=== PATIENT | male | born 1940 | race Two or more races ===

== ENCOUNTER 2024-09-12 16:19 | Emergency (ER) | payer MEDICARE, OTHER ==
[~2024-09-12] VITALS: Ht 167.6 cm; Wt 70.3 kg
[2024-09-12 17:04] LABS: BASOPHILS % (AUTO) 0.2 % (0.0-2.0); EOSINOPHILS # (AUTO) 0.2 K/uL (0.0-0.7); EOSINOPHILS % (AUTO) 2.2 % (0.0-6.0); HEMATOCRIT 33 % (39-51); HEMOGLOBIN 10.9 g/dL (13.5-17.5); LYMPHOCYTES # (AUTO) 1.3 K/uL (0.8-4.8); LYMPHOCYTES % (AUTO) 11.7 % (20.0-44.0); MEAN CORPUSCULAR HEMOGLOBIN 32 PG (26.0-33.0); MEAN CORPUSCULAR HGB CONC 33 g/dl (31.0-36.0); MEAN CORPUSCULAR VOLUME 98 fL (80-96); MONOCYTES # (AUTO) 0.9 K/uL (0.1-1.30); MONOCYTES % (AUTO) 8.1 % (2.0-12.0); NEUTROPHILS # (AUTO) 8.4 K/uL (1.8-8.9); NEUTROPHILS % (AUTO) 77.8 % (43.0-81.0); PLATELET COUNT (AUTO) 206 K/uL (150-450); RED BLOOD CELL COUNT(AUTO) 3.38 MIL/uL (4.5-6.0); RED CELL DISTRIBUTION WIDTH 15.2 % (11.5-15.0); WHITE BLOOD COUNT (AUTO) 10.7 K/uL (4.3-11.0)
[2024-09-12 17:10] LABS: CALCIUM, SERUM 8.6 mg/dL (8.5-10.1); CARBON DIOXIDE 25 mmol/L (21-32); CHLORIDE 103 mmol/L (98-107); CREATININE 4.4 mg/dL (0.6-1.3); GLUCOSE 396 mg/dL (74-106); POTASSIUM 3.9 mmol/L (3.5-5.1); SODIUM SERUM 138 mmol/L (136-145)
[2024-09-12 17:15] LABS: UREA NITROGEN, BLOOD 116 mg/dL (7-18)
[2024-09-12 19:57] VITALS: BP 90/54; TEMP 98; O2SAT 99
== END 2024-09-12 20:00 | disposition home or self-care (01) ==
LOC: ER 16:45
DX: I95.9 Hypotension, unspecified (principal); I13.2 Hypertensive heart and chronic kidney disease with heart failure and with stage 5 chronic kidney disease, or end stage renal disease; I50.9 Heart failure, unspecified; N18.6 End stage renal disease; G30.9 Alzheimer's disease, unspecified; R94.4 Abnormal results of kidney function studies; E03.9 Hypothyroidism, unspecified; D64.9 Anemia, unspecified; E11.22 Type 2 diabetes mellitus with diabetic chronic kidney disease; E78.5 Hyperlipidemia, unspecified; F02.80 Dementia in other diseases classified elsewhere, unspecified severity, without behavioral disturbance, psychotic disturbance, mood disturbance, and anxiety; K21.9 Gastro-esophageal reflux disease without esophagitis; N40.0 Benign prostatic hyperplasia without lower urinary tract symptoms; Z88.6 Allergy status to analgesic agent; Z99.2 Dependence on renal dialysis
CPT/HCPCS: 36415; 80048-TC; 85025-TC

== ENCOUNTER 2024-09-30 14:13 | Inpatient (IN) | payer MEDICAID, MEDICARE ==
[~2024-09-30] VITALS: Ht 167.6 cm; Wt 78.9 kg
[2024-09-30] VITALS (10 sets, daily range): BP systolic 74–99; BP diastolic 36–83; TEMP 97.9; O2SAT 96–98
[2024-09-30] MEDS: PROPOFOL 200 MG/20 ML VIAL IV ONE (16:03)
[2024-09-30 16:34] LABS: BASOPHILS # (AUTO) 0.1 K/uL (0.0-0.2); BASOPHILS % (AUTO) 0.4 % (0.0-2.0); EOSINOPHILS % (AUTO) 0.1 % (0.0-6.0); HEMATOCRIT 42 % (39-51); HEMOGLOBIN 12.5 g/dL (13.5-17.5); LYMPHOCYTES # (AUTO) 3.2 K/uL (0.8-4.8); MEAN CORPUSCULAR HEMOGLOBIN 32 PG (26.0-33.0); MEAN CORPUSCULAR HGB CONC 30 g/dl (31.0-36.0); MEAN CORPUSCULAR VOLUME 109 fL (80-96); MONOCYTES # (AUTO) 1.1 K/uL (0.1-1.30); MONOCYTES % (AUTO) 5.5 % (2.0-12.0); NEUTROPHILS # (AUTO) 15.5 K/uL (1.8-8.9); PLATELET COUNT (AUTO) 269 K/uL (150-450); RED BLOOD CELL COUNT(AUTO) 3.91 MIL/uL (4.5-6.0); RED CELL DISTRIBUTION WIDTH 15.8 % (11.5-15.0); WHITE BLOOD COUNT (AUTO) 19.9 K/uL (4.3-11.0)
[2024-09-30] MEDS: IV NS 0.9% 1,000 ML BAG IV ONE ×2 (16:40→17:50)
[2024-09-30] MEDS ORDERED: PIPERACI/TAZO 3.375GM/D5W 50ML PB IV ONE (16:43)
[2024-09-30] MEDS ORDERED: PROPOFOL 100 ML ONE (16:43)
[2024-09-30] MEDS: PROPOFOL 100 ML IV ONE (16:50)
[2024-09-30] MEDS: PIPERACILLIN /TAZOBACTAM 3.375 G in IV D5W 50 ML IV ONE (16:51)
[2024-09-30 16:55] LABS: ALANINE AMINOTRANSFERASE 44 U/L (12-78); ALBUMIN 2.4 g/dL (3.4-5.0); ALKALINE PHOSPHATASE 227 U/L (46-116); ASPARTATE AMINOTRANSFERASE 73 U/L (15-37); BILIRUBIN,DIRECT 0.2 mg/dL (0.0-0.2); BILIRUBIN,TOTAL 0.6 mg/dL (0.2-1.0); CALCIUM, SERUM 9.3 mg/dL (8.5-10.1); CARBON DIOXIDE 13 mmol/L (21-32); CHLORIDE 103 mmol/L (98-107); POTASSIUM 4.6 mmol/L (3.5-5.1); SODIUM SERUM 143 mmol/L (136-145); TOTAL PROTEIN, SERUM 7.6 g/dL (6.4-8.2); UREA NITROGEN, BLOOD 44 mg/dL (7-18)
[2024-09-30 16:57] LABS: ABG OXYGEN SATURATION 99.3 % (94.0-98.0); ABG PCO2 22.7 mmHg (35.0-48.0); ABG PH 7.042 (7.350-7.450); ABG PO2 390.5 mmHg (83.0-108.0); ABG TOTAL HEMOGLOBIN 11.9 G/dL (13.5-17.5); COHb 0.3 % (0.5-1.5); MetHb 0.3 % (0.0-1.5); O2Hb 98.7 % (94.0-97.0); SITE, ABG RIGHT RADIAL; VT, ABG 500 mL
[2024-09-30 16:58] LABS: GLUCOSE 412 mg/dL (74-106)
[2024-09-30 16:59] LABS: INR 1.13 (0.91-1.10); PARTIAL THROMBOPLASTIN TIME 32.7 SEC (24.3-34.3); PROTHROMBIN TIME 11.5 SECS (9.2-11.1)
[2024-09-30 17:18] LABS: ANISOCYTOSIS 1+; BASOPHILS % (MANUAL) 0 % (0.0-2.0); EOSINOPHILS % (MANUAL) 0 % (0-4); LYMPHOCYTES % (MANUAL) 20 % (16-48); MONOCYTES % (MANUAL) 5 % (0-11.0); NEUTROPHILS % (MANUAL) 75 (42-76); PLATELET ESTIMATE ADEQUATE
[2024-09-30] MEDS ORDERED: INSULIN REGULAR, HUMAN 100 UNIT/ML 10 ML VIAL ONE (17:36)
[2024-09-30] MEDS: INSULIN REGULAR, HUMAN 100 UNIT/ML 10 ML VIAL IV ONE (17:48)
[2024-09-30] MEDS ORDERED: DEXTROSE 50%-WATER 50 ML DISP.SYRIN IV PRN (18:00)
[2024-09-30] MEDS ORDERED: Z GUARD REMEDY 4 OZ OINT TP PRN (18:00)
[2024-09-30] MEDS ORDERED: MAG HYDROX/AL HYDROX/SIMETH 30 ML UDC PO PRN (18:00)
[2024-09-30] MEDS ORDERED: ZOLPIDEM TARTRATE 5 MG TABLET PO PRN (18:00)
[2024-09-30] MEDS ORDERED: MAGNESIUM HYDROXIDE 30 ML UDC PO PRN (18:00)
[2024-09-30] MEDS ORDERED: ACETAMINOPHEN 325 MG TABLET PO PRN (18:00)
[2024-09-30] MEDS ORDERED: FOLI0.8T2 GT (18:21)
[2024-09-30] MEDS ORDERED: LISI2.5T2 GT (18:21)
[2024-09-30] MEDS ORDERED: DOCU100T2 GT (18:21)
[2024-09-30] MEDS ORDERED: MIDO5TAB4 GT (18:21)
[2024-09-30] MEDS ORDERED: HEPA500014 SQ (18:21)
[2024-09-30] MEDS ORDERED: LORA-258 GT (18:21)
[2024-09-30] MEDS ORDERED: QUET50TA GT (18:21)
[2024-09-30] MEDS ORDERED: LORA-259 GT (18:21)
[2024-09-30] MEDS ORDERED: NEPRO 1.8 GT (18:21)
[2024-09-30] MEDS ORDERED: LANS30CA56 GT (18:21)
[2024-09-30] MEDS ORDERED: FOLI0.4T6 GT (18:21)
[2024-09-30] MEDS ORDERED: THIA100T70 GT (18:21)
[2024-09-30] MEDS ORDERED: DONE5TAB7 GT (18:21)
[2024-09-30] MEDS ORDERED: LEVO50TA GT (18:21)
[2024-09-30] MEDS ORDERED: AMIN30LI2 GT (18:21)
[2024-09-30] MEDS ORDERED: TERA2CAP4 GT (18:21)
[2024-09-30] MEDS ORDERED: ACET160L44 GT (18:21)
[2024-09-30] MEDS ORDERED: ATOR40TA GT (18:21)
[2024-09-30] MEDS ORDERED: ONDANSETRON HCL/PF 4 MG/2 ML VIAL ONE (18:23)
[2024-09-30] MEDS: ONDANSETRON HCL/PF 4 MG/2 ML VIAL IVP PRN (18:32)
[2024-09-30] MEDS ORDERED: NOREPINEPHRINE 8MG/250ML RTU 250 ML IV ONE ×2 (18:34→20:46)
[2024-09-30] MEDS: NOREPINEPHRINE 8 MG in IV D5W 242 ML IV PRN (18:46)
[2024-09-30] MEDS ORDERED: HEPARIN INFUSION/D5W 500 ML IV PRN ×2 (19:30→21:00)
[2024-09-30] MEDS: BLOOD SUGAR DIAGNOSTIC 1 EACH STRIP IN SCH (21:57)
[2024-09-30] MEDS ORDERED: ONDANSETRON HCL/PF 4 MG/2 ML VIAL IV PRN (22:00)
[2024-09-30] MEDS: INSULIN REGULAR, HUMAN 100 UNIT/ML 3 ML VIAL SQ PRN (22:01)
[2024-09-30] MEDS: ZOSYN IVPB 2.25 G in IV D5W 50ml IV SCH (22:10)
[2024-09-30] MEDS: PANTOPRAZOLE 40 MG VIAL IV SCH (22:42)
[2024-09-30] MEDS: PROPOFOL 100 ML IV PRN (22:58)
[2024-09-30] MEDS ORDERED: PHENYLEPHRINE 50 MG in IV NS 0.9% 245 ML IV PRN (23:00)
[2024-10-01] VITALS (92 sets, daily range): BP systolic 61–153; BP diastolic 35–141; TEMP 97.1–100.3; O2SAT 95–99
[2024-10-01] MEDS: PHENYLEPHRINE 50 MG in IV NS 0.9% 245 ML IV PRN (00:10)
[2024-10-01] MEDS: PHENYLEPHRINE 10 MG/ML VIAL ONE (00:32)
[2024-10-01 05:33] LABS: BASOPHILS % (AUTO) 0.1 % (0.0-2.0); EOSINOPHILS % (AUTO) 0.2 % (0.0-6.0); HEMATOCRIT 39 % (39-51); HEMOGLOBIN 11.6 g/dL (13.5-17.5); LYMPHOCYTES # (AUTO) 1.5 K/uL (0.8-4.8); MEAN CORPUSCULAR HEMOGLOBIN 33 PG (26.0-33.0); MEAN CORPUSCULAR HGB CONC 30 g/dl (31.0-36.0); MEAN CORPUSCULAR VOLUME 109 fL (80-96); MONOCYTES # (AUTO) 0.6 K/uL (0.1-1.30); MONOCYTES % (AUTO) 4.8 % (2.0-12.0); NEUTROPHILS # (AUTO) 11.1 K/uL (1.8-8.9); NEUTROPHILS % (AUTO) 83.9 % (43.0-81.0); PLATELET COUNT (AUTO) 160 K/uL (150-450); RED BLOOD CELL COUNT(AUTO) 3.57 MIL/uL (4.5-6.0); RED CELL DISTRIBUTION WIDTH 16.1 % (11.5-15.0); WHITE BLOOD COUNT (AUTO) 13.3 K/uL (4.3-11.0)
[2024-10-01 05:46] LABS: CALCIUM, SERUM 7.4 mg/dL (8.5-10.1); MAGNESIUM 2.5 mg/dL (1.8-2.4); PHOSPHORUS 6.4 mg/dL (2.5-4.9); POTASSIUM 4.6 mmol/L (3.5-5.1)
[2024-10-01 05:51] LABS: THYROID STIMULATING HORMONE 2.96 uIU/mL (0.358-3.74)
[2024-10-01] MEDS: NOREPINEPHRINE 8MG/250ML RTU 250 ML IV ONE (06:35)
[2024-10-01 07:46] LABS: BAND % (MANUAL) 6 % (0.0-5.0); BASOPHILS % (MANUAL) 0 % (0.0-2.0); EOSINOPHILS % (MANUAL) 0 % (0-4); LYMPHOCYTES % (MANUAL) 9 % (16-48); MONOCYTES % (MANUAL) 4 % (0-11.0); NEUTROPHILS % (MANUAL) 81 (42-76)
[2024-10-01 07:47] LABS: ANISOCYTOSIS 1+; PLATELET ESTIMATE ADEQUATE
[2024-10-01 08:44] LABS: ABG OXYGEN SATURATION 96.8 % (94.0-98.0); ABG PCO2 23.9 mmHg (35.0-48.0); ABG PH 7.306 (7.350-7.450); ABG PO2 91.7 mmHg (83.0-108.0); SITE, ABG RIGHT BRACHIAL
[2024-10-01 08:45] LABS: ABG BASE EXCESS -12.8 mmol/L (-2.0-3.0); COHb 0.2 % (0.5-1.5); O2Hb 96.6 % (94.0-97.0); PEEP,BG 0 cm H2O; VT, ABG 500 mL
[2024-10-01] MEDS ORDERED: PANTOPRAZOLE 40 MG VIAL IV SCH (09:00)
[2024-10-01] MEDS: IV NS 0.9% 500 ML IV ONE (09:49)
[2024-10-01] MEDS ORDERED: PHENYLEPHRINE 100 MG in IV NS 0.9% 240 ML IV PRN (10:00)
[2024-10-01] MEDS: Sodium Bicarbonate 150 MEQ in IV D5W 1,000 ML IV SCH (10:03)
[2024-10-01] MEDS: VANCOMYCIN 1 GM in IV D5W 250 ML IV ONE (10:04)
[2024-10-01 11:23] LABS: LACTIC ACID 10.1 mmol/L (0.4-2.0)
[2024-10-01] MEDS: THERAHONEY GEL 1.5 OZ TUBE TP SCH (11:37)
[2024-10-01] MEDS ORDERED: NOREPINEPHRINE 32 MG in IV NS 0.9% 218 ML IV PRN (12:00)
[2024-10-01] MEDS: NOREPINEPHRINE 8 MG in IV D5W 242 ML IV PRN (16:28)
[2024-10-01] MEDS: PHENYLEPHRINE 100 MG in IV NS 0.9% 240 ML IV PRN (17:16)
[2024-10-02] VITALS (105 sets, daily range): BP systolic 44–189; BP diastolic 34–106; TEMP 97.6–99; O2SAT 95–100
[2024-10-02 06:00] LABS: BASOPHILS % (AUTO) 0.3 % (0.0-2.0); EOSINOPHILS % (AUTO) 0.2 % (0.0-6.0); HEMATOCRIT 37 % (39-51); HEMOGLOBIN 11.8 g/dL (13.5-17.5); LYMPHOCYTES # (AUTO) 0.8 K/uL (0.8-4.8); LYMPHOCYTES % (AUTO) 4.7 % (20.0-44.0); MEAN CORPUSCULAR HEMOGLOBIN 33 PG (26.0-33.0); MEAN CORPUSCULAR HGB CONC 32 g/dl (31.0-36.0); MEAN CORPUSCULAR VOLUME 103 fL (80-96); MONOCYTES # (AUTO) 0.7 K/uL (0.1-1.30); MONOCYTES % (AUTO) 3.7 % (2.0-12.0); NEUTROPHILS # (AUTO) 16.5 K/uL (1.8-8.9); NEUTROPHILS % (AUTO) 91.1 % (43.0-81.0); PLATELET COUNT (AUTO) 113 K/uL (150-450); RED BLOOD CELL COUNT(AUTO) 3.63 MIL/uL (4.5-6.0); RED CELL DISTRIBUTION WIDTH 14.8 % (11.5-15.0); WHITE BLOOD COUNT (AUTO) 18.1 K/uL (4.3-11.0)
[2024-10-02 06:16] LABS: LACTIC ACID 6.9 mmol/L (0.4-2.0)
[2024-10-02 06:42] LABS: CARBON DIOXIDE 15 mmol/L (21-32); CHLORIDE 100 mmol/L (98-107); POTASSIUM 4.1 mmol/L (3.5-5.1); SODIUM SERUM 138 mmol/L (136-145)
[2024-10-02 06:51] LABS: CALCIUM, SERUM 7.1 mg/dL (8.5-10.1); CREATININE 3.8 mg/dL (0.6-1.3); GLUCOSE 159 mg/dL (74-106); UREA NITROGEN, BLOOD 69 mg/dL (7-18)
[2024-10-02 11:35] LABS: BILIRUBIN,DIRECT 0.4 mg/dL (0.0-0.2); BILIRUBIN,TOTAL 0.6 mg/dL (0.2-1.0)
[2024-10-02 11:36] LABS: ALBUMIN 1.7 g/dL (3.4-5.0)
[2024-10-02 12:13] LABS: LYMPHOCYTES % (MANUAL) 6 % (16-48); MONOCYTES % (MANUAL) 3 % (0-11.0)
[2024-10-02 12:14] LABS: BAND % (MANUAL) 24 % (0.0-5.0); NEUTROPHILS % (MANUAL) 65 (42-76)
[2024-10-02 12:15] LABS: METAMYELOCYTES % 1 % (0-0)
[2024-10-02 12:16] LABS: ANISOCYTOSIS 1+; MYELOCYTES % 1 % (0-0); PLATELET ESTIMATE ADEQUATE
[2024-10-02] MEDS: NOREPINEPHRINE 32 MG in IV NS 0.9% 218 ML IV PRN (12:58)
[2024-10-02] MEDS: VANCOMYCIN POST DIALYSIS 500MG IV PRN (18:53)
[2024-10-02] MEDS: MEROPENEM 500 MG in IV NS 0.9% 50 ML IV SCH (21:57)
[2024-10-03] VITALS (93 sets, daily range): BP systolic 50–153; BP diastolic 29–94; TEMP 97.7–99.5; O2SAT 97–100
[2024-10-03 04:57] LABS: EOSINOPHILS # (AUTO) 0.1 K/uL (0.0-0.7); EOSINOPHILS % (AUTO) 0.3 % (0.0-6.0); HEMATOCRIT 33 % (39-51); HEMOGLOBIN 11.2 g/dL (13.5-17.5); LYMPHOCYTES # (AUTO) 0.4 K/uL (0.8-4.8); LYMPHOCYTES % (AUTO) 2.2 % (20.0-44.0); MEAN CORPUSCULAR HEMOGLOBIN 32 PG (26.0-33.0); MEAN CORPUSCULAR HGB CONC 34 g/dl (31.0-36.0); MEAN CORPUSCULAR VOLUME 96 fL (80-96); MONOCYTES # (AUTO) 0.4 K/uL (0.1-1.30); MONOCYTES % (AUTO) 1.9 % (2.0-12.0); NEUTROPHILS # (AUTO) 19.5 K/uL (1.8-8.9); NEUTROPHILS % (AUTO) 95.6 % (43.0-81.0); PLATELET COUNT (AUTO) 101 K/uL (150-450); RED BLOOD CELL COUNT(AUTO) 3.44 MIL/uL (4.5-6.0); RED CELL DISTRIBUTION WIDTH 14.2 % (11.5-15.0); WHITE BLOOD COUNT (AUTO) 20.4 K/uL (4.3-11.0)
[2024-10-03 05:21] LABS: CALCIUM, SERUM 6.5 mg/dL (8.5-10.1); CARBON DIOXIDE 22 mmol/L (21-32); CHLORIDE 98 mmol/L (98-107); CREATININE 3.5 mg/dL (0.6-1.3); GLUCOSE 152 mg/dL (74-106); MAGNESIUM 1.6 mg/dL (1.8-2.4); PHOSPHORUS 4.5 mg/dL (2.5-4.9); SODIUM SERUM 133 mmol/L (136-145); UREA NITROGEN, BLOOD 52 mg/dL (7-18)
[2024-10-03 05:32] LABS: LACTIC ACID 3.6 mmol/L (0.4-2.0)
[2024-10-03 08:11] LABS: BAND % (MANUAL) 1 % (0.0-5.0); LYMPHOCYTES % (MANUAL) 5 % (16-48); METAMYELOCYTES % 1 % (0-0); MONOCYTES % (MANUAL) 1 % (0-11.0); MYELOCYTES % 1 % (0-0); NEUTROPHILS % (MANUAL) 88 (42-76); PROMYELOCYTES % 1 % (0-0); REACTIVE LYMPHOCYTES 2 % (0-0)
[2024-10-03 08:12] LABS: ANISOCYTOSIS 1+; HYPOCHROMASIA 1+; PLATELET ESTIMATE DECREASED
[2024-10-03] MEDS: POTASSIUM CL. PREMIX PERIPHER. 50 ML IV SCH (10:43)
[2024-10-03] MEDS: Magnesium 1GM/D5W 100ML PREMIX 100 ML IV SCH (13:00)
[2024-10-03 14:47] LABS: ABG OXYGEN SATURATION 95.9 % (94.0-98.0); ABG PCO2 21.9 mmHg (35.0-48.0); ABG PO2 76.8 mmHg (83.0-108.0); ABG TOTAL HEMOGLOBIN 12.5 G/dL (13.5-17.5); COHb 0.1 % (0.5-1.5); O2Hb 95.8 % (94.0-97.0); SITE, ABG RIGHT RADIAL; VT, ABG 500 mL
[2024-10-03] MEDS: HYDROCORTISONE SOD SUCCINATE 100 MG/2 ML VIAL IV SCH (14:59)
[2024-10-03] MEDS: Sodium Bicarbonate 150 MEQ in IV D5W 1,000 ML IV PRN (15:00)
[2024-10-03] MEDS: Sodium Bicarbonate 150 MEQ in IV D5W 1,000 ML IV SCH (20:37)
[2024-10-04] VITALS (100 sets, daily range): BP systolic 76–148; BP diastolic 45–96; TEMP 97.8–98.2; O2SAT 93–100
[2024-10-04 05:44] LABS: BASOPHILS % (AUTO) 0.1 % (0.0-2.0); EOSINOPHILS % (AUTO) 0.2 % (0.0-6.0); HEMATOCRIT 30 % (39-51); HEMOGLOBIN 10.3 g/dL (13.5-17.5); LYMPHOCYTES # (AUTO) 0.4 K/uL (0.8-4.8); LYMPHOCYTES % (AUTO) 2.3 % (20.0-44.0); MEAN CORPUSCULAR HEMOGLOBIN 33 PG (26.0-33.0); MEAN CORPUSCULAR HGB CONC 34 g/dl (31.0-36.0); MEAN CORPUSCULAR VOLUME 98 fL (80-96); MONOCYTES # (AUTO) 0.3 K/uL (0.1-1.30); MONOCYTES % (AUTO) 1.9 % (2.0-12.0); NEUTROPHILS # (AUTO) 14.7 K/uL (1.8-8.9); NEUTROPHILS % (AUTO) 95.5 % (43.0-81.0); RED BLOOD CELL COUNT(AUTO) 3.08 MIL/uL (4.5-6.0); RED CELL DISTRIBUTION WIDTH 14.6 % (11.5-15.0); WHITE BLOOD COUNT (AUTO) 15.4 K/uL (4.3-11.0)
[2024-10-04 05:45] LABS: LACTIC ACID 2.8 mmol/L (0.4-2.0)
[2024-10-04 06:06] LABS: ALANINE AMINOTRANSFERASE 2035 U/L (12-78); ALKALINE PHOSPHATASE 169 U/L (46-116); ASPARTATE AMINOTRANSFERASE 641 U/L (15-37); BILIRUBIN,DIRECT 0.3 mg/dL (0.0-0.2); BILIRUBIN,TOTAL 0.6 mg/dL (0.2-1.0)
[2024-10-04 06:28] LABS: CALCIUM, SERUM 6.4 mg/dL (8.5-10.1); CREATININE 3.9 mg/dL (0.6-1.3); MAGNESIUM 2.4 mg/dL (1.8-2.4); PHOSPHORUS 5.2 mg/dL (2.5-4.9); POTASSIUM 3.6 mmol/L (3.5-5.1)
[2024-10-04 08:26] LABS: ABG BASE EXCESS 0.9 mmol/L (-2.0-3.0); ABG OXYGEN SATURATION 95.6 % (94.0-98.0); ABG PCO2 30.2 mmHg (35.0-48.0); ABG PH 7.506 (7.350-7.450); ABG TOTAL HEMOGLOBIN 11.5 G/dL (13.5-17.5); COHb 0.6 % (0.5-1.5); MetHb 0.3 % (0.0-1.5); O2Hb 94.7 % (94.0-97.0); PEEP,BG 0 cm H2O; SITE, ABG LEFT RADIAL; VT, ABG 475 mL
[2024-10-04] MEDS: IV D5/ 0.9% NACL 1,000 ML IV PRN (09:05)
[2024-10-04 10:15] LABS: PLATELET COUNT (AUTO) 95 K/uL (150-450)
[2024-10-04 15:13] LABS: BASOPHILS % (MANUAL) 0 % (0.0-2.0); EOSINOPHILS % (MANUAL) 0 % (0-4); LYMPHOCYTES % (MANUAL) 3 % (16-48); MONOCYTES % (MANUAL) 1 % (0-11.0); NEUTROPHILS % (MANUAL) 96 (42-76)
[2024-10-05] VITALS (92 sets, daily range): BP systolic 60–165; BP diastolic 48–97; TEMP 96.3–97.7; O2SAT 95–100
[2024-10-05 05:20] LABS: BASOPHILS % (AUTO) 0.2 % (0.0-2.0); EOSINOPHILS % (AUTO) 0.2 % (0.0-6.0); HEMATOCRIT 30 % (39-51); HEMOGLOBIN 10.1 g/dL (13.5-17.5); LYMPHOCYTES # (AUTO) 0.5 K/uL (0.8-4.8); LYMPHOCYTES % (AUTO) 3.3 % (20.0-44.0); MEAN CORPUSCULAR HEMOGLOBIN 33 PG (26.0-33.0); MEAN CORPUSCULAR HGB CONC 34 g/dl (31.0-36.0); MEAN CORPUSCULAR VOLUME 97 fL (80-96); MONOCYTES # (AUTO) 0.1 K/uL (0.1-1.30); MONOCYTES % (AUTO) 0.8 % (2.0-12.0); NEUTROPHILS # (AUTO) 14.5 K/uL (1.8-8.9); NEUTROPHILS % (AUTO) 95.5 % (43.0-81.0); PLATELET COUNT (AUTO) 95 K/uL (150-450); RED BLOOD CELL COUNT(AUTO) 3.07 MIL/uL (4.5-6.0); RED CELL DISTRIBUTION WIDTH 14.1 % (11.5-15.0); WHITE BLOOD COUNT (AUTO) 15.1 K/uL (4.3-11.0)
[2024-10-05 05:31] LABS: CALCIUM, SERUM 6.2 mg/dL (8.5-10.1); CREATININE 4.2 mg/dL (0.6-1.3)
[2024-10-05 05:43] LABS: MAGNESIUM 2.2 mg/dL (1.8-2.4)
[2024-10-05 06:04] LABS: POTASSIUM 2.6 mmol/L (3.5-5.1)
[2024-10-05 06:59] LABS: ANISOCYTOSIS 1+; BAND % (MANUAL) 2 % (0.0-5.0); LYMPHOCYTES % (MANUAL) 5 % (16-48); MONOCYTES % (MANUAL) 6 % (0-11.0); NEUTROPHILS % (MANUAL) 87 (42-76); PLATELET ESTIMATE DECREASED
[2024-10-05] MEDS: POTASSIUM CL. PREMIX PERIPHER. 50 ML IV SCH ×2 (07:19→09:30)
[2024-10-05] MEDS ORDERED: GLUCERNA SHAKE 237 ML CAN PO SCH (17:00)
[2024-10-05] MEDS: IV NS 0.9% 250 ML IV PRN (18:44)
[2024-10-06] VITALS (93 sets, daily range): BP systolic 55–152; BP diastolic 29–82; TEMP 97.5–97.9; O2SAT 98–100
[2024-10-06 04:06] LABS: HBSAG SCREEN Negative (Negative); HEPATITIS A AB, IgM Negative (Negative); HEPATITIS B CORE AB, IgM Negative (Negative)
[2024-10-06 04:55] LABS: CALCIUM, SERUM 7.2 mg/dL (8.5-10.1); MAGNESIUM 1.9 mg/dL (1.8-2.4); PHOSPHORUS 5.2 mg/dL (2.5-4.9); POTASSIUM 4.3 mmol/L (3.5-5.1)
[2024-10-06 04:57] LABS: LYMPHOCYTES # (AUTO) 0.5 K/uL (0.8-4.8); LYMPHOCYTES % (AUTO) 3.4 % (20.0-44.0); MEAN CORPUSCULAR HEMOGLOBIN 29 PG (26.0-33.0); MEAN CORPUSCULAR HGB CONC 36 g/dl (31.0-36.0); MEAN CORPUSCULAR VOLUME 80 fL (80-96); MONOCYTES # (AUTO) 0.9 K/uL (0.1-1.30); MONOCYTES % (AUTO) 6.7 % (2.0-12.0); NEUTROPHILS # (AUTO) 12.7 K/uL (1.8-8.9); NEUTROPHILS % (AUTO) 89.9 % (43.0-81.0); PLATELET COUNT (AUTO) 146 K/uL (150-450); RED BLOOD CELL COUNT(AUTO) 2.29 MIL/uL (4.5-6.0); RED CELL DISTRIBUTION WIDTH 14.2 % (11.5-15.0); WHITE BLOOD COUNT (AUTO) 14.1 K/uL (4.3-11.0)
[2024-10-06 05:54] LABS: HEMOGLOBIN 6.6 g/dL (13.5-17.5)
[2024-10-06 05:55] LABS: HEMATOCRIT 18 % (39-51)
[2024-10-06] MEDS ORDERED: DC PROPOFOL WHEN EXTUBATED XX PRN (09:00)
[2024-10-06 09:48] LABS: HEMOGLOBIN 8.4 g/dL (13.5-17.5)
[2024-10-06 09:57] LABS: ABG OXYGEN SATURATION 96.6 % (94.0-98.0); ABG PH 7.489 (7.350-7.450); ABG PO2 87.6 mmHg (83.0-108.0); ABG TOTAL HEMOGLOBIN 10.5 G/dL (13.5-17.5); COHb 0.3 % (0.5-1.5); MetHb 0.3 % (0.0-1.5); PEEP,BG 5 cm H2O; SITE, ABG RIGHT BRACHIAL; VT, ABG 450 mL
[2024-10-06 11:39] LABS: ANISOCYTOSIS 1+; BASOPHILS % (MANUAL) 0 % (0.0-2.0); EOSINOPHILS % (MANUAL) 0 % (0-4); LYMPHOCYTES % (MANUAL) 5 % (16-48); MONOCYTES % (MANUAL) 7 % (0-11.0); NEUTROPHILS % (MANUAL) 88 (42-76); PLATELET ESTIMATE DECREASED
[2024-10-06 13:44] LABS: ABG OXYGEN SATURATION 95.6 % (94.0-98.0); ABG PCO2 30.3 mmHg (35.0-48.0); ABG PH 7.462 (7.350-7.450); COHb 0.3 % (0.5-1.5); MetHb 0.3 % (0.0-1.5); SITE, ABG RIGHT BRACHIAL
[2024-10-07] VITALS (88 sets, daily range): BP systolic 69–114; BP diastolic 40–77; TEMP 97.4–98.1; O2SAT 94–100
[2024-10-07 05:35] LABS: CALCIUM, SERUM 6.9 mg/dL (8.5-10.1); CHLORIDE 109 mmol/L (98-107); CREATININE 3.6 mg/dL (0.6-1.3); GLUCOSE 183 mg/dL (74-106); MAGNESIUM 1.8 mg/dL (1.8-2.4); PHOSPHORUS 5.3 mg/dL (2.5-4.9); POTASSIUM 3.6 mmol/L (3.5-5.1); SODIUM SERUM 145 mmol/L (136-145); UREA NITROGEN, BLOOD 47 mg/dL (7-18)
[2024-10-07 05:41] LABS: CARBON DIOXIDE 24 mmol/L (21-32)
[2024-10-07 06:24] LABS: BASOPHILS % (AUTO) 0.1 % (0.0-2.0); EOSINOPHILS % (AUTO) 0.1 % (0.0-6.0); HEMATOCRIT 27 % (39-51); HEMOGLOBIN 8.8 g/dL (13.5-17.5); LYMPHOCYTES # (AUTO) 0.8 K/uL (0.8-4.8); MEAN CORPUSCULAR HEMOGLOBIN 32 PG (26.0-33.0); MEAN CORPUSCULAR HGB CONC 33 g/dl (31.0-36.0); MEAN CORPUSCULAR VOLUME 100 fL (80-96); MONOCYTES # (AUTO) 0.8 K/uL (0.1-1.30); MONOCYTES % (AUTO) 5.5 % (2.0-12.0); NEUTROPHILS # (AUTO) 13.7 K/uL (1.8-8.9); NEUTROPHILS % (AUTO) 89.3 % (43.0-81.0); PLATELET COUNT (AUTO) 103 K/uL (150-450); RED BLOOD CELL COUNT(AUTO) 2.72 MIL/uL (4.5-6.0); RED CELL DISTRIBUTION WIDTH 14.4 % (11.5-15.0); WHITE BLOOD COUNT (AUTO) 15.3 K/uL (4.3-11.0)
[2024-10-07 10:00] LABS: BAND % (MANUAL) 1 % (0.0-5.0); LYMPHOCYTES % (MANUAL) 9 % (16-48); MONOCYTES % (MANUAL) 4 % (0-11.0); MYELOCYTES % 1 % (0-0); NEUTROPHILS % (MANUAL) 85 (42-76); PLATELET ESTIMATE DECREASED
[2024-10-07 10:01] LABS: ANISOCYTOSIS 1+
[2024-10-07] MEDS: BLOOD SUGAR DIAGNOSTIC 1 EACH STRIP IN SCH (11:36)
[2024-10-07] MEDS: EPOETIN ALFA (10,000 UNIT) 10,000 UNIT/ML VIAL IV ONE (16:54)
[2024-10-08] VITALS (98 sets, daily range): BP systolic 69–165; BP diastolic 50–141; TEMP 97.6–98.2; O2SAT 97–100
[2024-10-08 05:28] LABS: CALCIUM, SERUM 7.1 mg/dL (8.5-10.1); POTASSIUM 3.1 mmol/L (3.5-5.1)
[2024-10-08] MEDS ORDERED: MIDODRINE HCL (5MG) 5 MG TABLET GT PRN (15:30)
[2024-10-08] MEDS: ATORVASTATIN 40 MG TABLET GT SCH (16:21)
[2024-10-08] MEDS: DOCUSATE SODIUM 100 MG CAPSULE PO SCH (17:14)
[2024-10-08] MEDS: DONEPEZIL 5 MG TABLET GT SCH (21:11)
[2024-10-09] VITALS (107 sets, daily range): BP systolic 74–190; BP diastolic 41–142; TEMP 97–97.7; O2SAT 97–100
[2024-10-09 06:03] LABS: CALCIUM, SERUM 6.9 mg/dL (8.5-10.1); CREATININE 3.6 mg/dL (0.6-1.3)
[2024-10-09] MEDS: POTASSIUM CL. PREMIX PERIPHER. 50 ML IV SCH ×2 (07:36→08:57)
[2024-10-09] MEDS: LEVOTHYROXINE SODIUM 50 MCG TABLET GT SCH (07:36)
[2024-10-09 07:59] LABS: BASOPHILS % (AUTO) 0.1 % (0.0-2.0); HEMATOCRIT 27 % (39-51); HEMOGLOBIN 8.6 g/dL (13.5-17.5); LYMPHOCYTES # (AUTO) 0.7 K/uL (0.8-4.8); LYMPHOCYTES % (AUTO) 3.6 % (20.0-44.0); MEAN CORPUSCULAR HEMOGLOBIN 33 PG (26.0-33.0); MEAN CORPUSCULAR HGB CONC 32 g/dl (31.0-36.0); MEAN CORPUSCULAR VOLUME 102 fL (80-96); MONOCYTES # (AUTO) 0.5 K/uL (0.1-1.30); MONOCYTES % (AUTO) 2.5 % (2.0-12.0); NEUTROPHILS % (AUTO) 93.8 % (43.0-81.0); PLATELET COUNT (AUTO) 114 K/uL (150-450); RED BLOOD CELL COUNT(AUTO) 2.62 MIL/uL (4.5-6.0); RED CELL DISTRIBUTION WIDTH 15.6 % (11.5-15.0); WHITE BLOOD COUNT (AUTO) 19.2 K/uL (4.3-11.0)
[2024-10-09] MEDS: VIT B CMPLX 3/FA/VIT C/BIOTIN 1 TAB TABLET GT SCH (09:33)
[2024-10-09] MEDS: FOLIC ACID 1 MG TABLET GT SCH (09:33)
[2024-10-09] MEDS: EPOETIN ALFA (10,000 UNIT) 10,000 UNIT/ML VIAL IV ONE (10:23)
[2024-10-09] MEDS: MIDODRINE HCL (5MG) 5 MG TABLET PO SCH (11:44)
[2024-10-09] MEDS: ALTEPLASE CATHFLO 2 MG/VIAL XX ONE (21:34)
[2024-10-09] MEDS: VANCOMYCIN 1 GM in IV D5W 250ml IV ONE (21:47)
[2024-10-10] VITALS (104 sets, daily range): BP systolic 64–151; BP diastolic 34–103; TEMP 97.1–97.7; O2SAT 97–100
[2024-10-10 05:13] LABS: CALCIUM, SERUM 6.7 mg/dL (8.5-10.1); CARBON DIOXIDE 25 mmol/L (21-32); CHLORIDE 108 mmol/L (98-107); CREATININE 3.1 mg/dL (0.6-1.3); GLUCOSE 162 mg/dL (74-106); POTASSIUM 3.2 mmol/L (3.5-5.1); SODIUM SERUM 141 mmol/L (136-145); UREA NITROGEN, BLOOD 39 mg/dL (7-18)
[2024-10-10] MEDS ORDERED: VANCOMYCIN POST DIALYSIS 500MG IV PRN (06:00)
[2024-10-10] MEDS: DOCUSATE SODIUM LIQ 100 MG/10 ML UDC NG SCH (09:00)
[2024-10-10] MEDS ORDERED: NEPRO 1,000 ML BOTTLE GT PRN (09:30)
[2024-10-10 09:48] LABS: BASOPHILS # (AUTO) 0.1 K/uL (0.0-0.2); BASOPHILS % (AUTO) 0.3 % (0.0-2.0); HEMATOCRIT 28 % (39-51); HEMOGLOBIN 8.9 g/dL (13.5-17.5); LYMPHOCYTES # (AUTO) 0.8 K/uL (0.8-4.8); LYMPHOCYTES % (AUTO) 3.2 % (20.0-44.0); MEAN CORPUSCULAR HEMOGLOBIN 33 PG (26.0-33.0); MEAN CORPUSCULAR HGB CONC 32 g/dl (31.0-36.0); MEAN CORPUSCULAR VOLUME 101 fL (80-96); MONOCYTES # (AUTO) 0.1 K/uL (0.1-1.30); MONOCYTES % (AUTO) 0.3 % (2.0-12.0); NEUTROPHILS # (AUTO) 23.5 K/uL (1.8-8.9); NEUTROPHILS % (AUTO) 96.2 % (43.0-81.0); PLATELET COUNT (AUTO) 96 K/uL (150-450); RED BLOOD CELL COUNT(AUTO) 2.72 MIL/uL (4.5-6.0); RED CELL DISTRIBUTION WIDTH 15.5 % (11.5-15.0); WHITE BLOOD COUNT (AUTO) 24.4 K/uL (4.3-11.0)
[2024-10-10 12:00] LABS: BAND % (MANUAL) 5 % (0.0-5.0); BASOPHILS % (MANUAL) 0 % (0.0-2.0); EOSINOPHILS % (MANUAL) 0 % (0-4); LYMPHOCYTES % (MANUAL) 4 % (16-48); MONOCYTES % (MANUAL) 3 % (0-11.0); NEUTROPHILS % (MANUAL) 88 (42-76); PLATELET ESTIMATE DECREASED
[2024-10-10] MEDS: POTASSIUM CL. PREMIX PERIPHER. 50 ML IV SCH (13:11)
[2024-10-10] MEDS: NEPRO 1,000 ML BOTTLE GT PRN (17:07)
[2024-10-10] MEDS: GUAIFENESIN 300 MG/15 ML UDC PO PRN (18:54)
[2024-10-11] VITALS (88 sets, daily range): BP systolic 86–128; BP diastolic 44–91; TEMP 97.4–98.8; O2SAT 94–100
[2024-10-11 05:10] LABS: CALCIUM, SERUM 7.1 mg/dL (8.5-10.1); CARBON DIOXIDE 24 mmol/L (21-32); CHLORIDE 109 mmol/L (98-107); GLUCOSE 209 mg/dL (74-106); POTASSIUM 3.6 mmol/L (3.5-5.1); SODIUM SERUM 143 mmol/L (136-145); UREA NITROGEN, BLOOD 39 mg/dL (7-18)
[2024-10-12] VITALS (29 sets, daily range): BP systolic 92–141; BP diastolic 43–79; TEMP 97.1–98.4; O2SAT 94–100
[2024-10-12 04:41] LABS: HEMATOCRIT 26 % (39-51); HEMOGLOBIN 8.6 g/dL (13.5-17.5); LYMPHOCYTES # (AUTO) 0.4 K/uL (0.8-4.8); LYMPHOCYTES % (AUTO) 1.8 % (20.0-44.0); MEAN CORPUSCULAR HEMOGLOBIN 34 PG (26.0-33.0); MEAN CORPUSCULAR HGB CONC 33 g/dl (31.0-36.0); MEAN CORPUSCULAR VOLUME 102 fL (80-96); MONOCYTES # (AUTO) 0.4 K/uL (0.1-1.30); MONOCYTES % (AUTO) 1.8 % (2.0-12.0); NEUTROPHILS # (AUTO) 21.9 K/uL (1.8-8.9); NEUTROPHILS % (AUTO) 96.4 % (43.0-81.0); PLATELET COUNT (AUTO) 96 K/uL (150-450); RED BLOOD CELL COUNT(AUTO) 2.56 MIL/uL (4.5-6.0); RED CELL DISTRIBUTION WIDTH 15.6 % (11.5-15.0); WHITE BLOOD COUNT (AUTO) 22.7 K/uL (4.3-11.0)
[2024-10-12 04:54] LABS: CALCIUM, SERUM 6.9 mg/dL (8.5-10.1); CARBON DIOXIDE 22 mmol/L (21-32); CHLORIDE 106 mmol/L (98-107); CREATININE 3.3 mg/dL (0.6-1.3); GLUCOSE 297 mg/dL (74-106); POTASSIUM 3.1 mmol/L (3.5-5.1); SODIUM SERUM 140 mmol/L (136-145); UREA NITROGEN, BLOOD 47 mg/dL (7-18)
[2024-10-12] MEDS: POTASSIUM CL. PREMIX PERIPHER. 50 ML IV SCH (10:29)
[2024-10-12] MEDS: HYDROCORTISONE SOD SUCCINATE 100 MG/2 ML VIAL IV SCH (17:29)
[2024-10-13 07:30] VITALS: BP 127/81; TEMP 97.7; O2SAT 98
[2024-10-13 08:11] LABS: CREATININE 2.5 mg/dL (0.6-1.3); POTASSIUM 3.7 mmol/L (3.5-5.1)
[2024-10-13 08:20] LABS: CALCIUM, SERUM 7.6 mg/dL (8.5-10.1)
[2024-10-13] MEDS: HYDROCORTISONE SOD SUCCINATE 100 MG/2 ML VIAL IV SCH (15:25)
[2024-10-13 16:00] VITALS: BP 149/78; TEMP 97.9; O2SAT 100
[2024-10-13] MEDS ORDERED: DEXTROSE 50%-WATER 50 ML DISP.SYRIN IV PRN (17:30)
[2024-10-13 20:00] VITALS: BP 136/92; TEMP 98.1; O2SAT 96
[2024-10-14] VITALS: BP 133/99; TEMP 98.4; O2SAT 100
[2024-10-14] MEDS: INSULIN REGULAR, HUMAN 100 UNIT/ML 3 ML VIAL SQ PRN (01:06)
[2024-10-14] MEDS: BLOOD SUGAR DIAGNOSTIC 1 EACH STRIP IN SCH (01:08)
[2024-10-14 04:00] VITALS: BP 134/84; TEMP 98.5; O2SAT 99
[2024-10-14 08:00] VITALS: BP 121/59; TEMP 98.1; O2SAT 98
[2024-10-14 12:00] VITALS: BP 111/83; TEMP 98.9; O2SAT 98
[2024-10-14 16:00] VITALS: BP 147/74; TEMP 99.3; O2SAT 99
[2024-10-14 16:57] LABS: CREATININE 2.8 mg/dL (0.6-1.3); HEMATOCRIT 29 % (39-51); HEMOGLOBIN 8.9 g/dL (13.5-17.5); LYMPHOCYTES # (AUTO) 0.4 K/uL (0.8-4.8); LYMPHOCYTES % (AUTO) 2.4 % (20.0-44.0); MEAN CORPUSCULAR HEMOGLOBIN 33 PG (26.0-33.0); MEAN CORPUSCULAR HGB CONC 31 g/dl (31.0-36.0); MEAN CORPUSCULAR VOLUME 106 fL (80-96); MONOCYTES # (AUTO) 0.6 K/uL (0.1-1.30); NEUTROPHILS # (AUTO) 14.2 K/uL (1.8-8.9); NEUTROPHILS % (AUTO) 93.6 % (43.0-81.0); PLATELET COUNT (AUTO) 97 K/uL (150-450); POTASSIUM 3.4 mmol/L (3.5-5.1); RED CELL DISTRIBUTION WIDTH 16.7 % (11.5-15.0); WHITE BLOOD COUNT (AUTO) 15.2 K/uL (4.3-11.0)
[2024-10-14 20:00] VITALS: BP 125/83; TEMP 97.7; O2SAT 100
[2024-10-14] MEDS ORDERED: ALTEPLASE CATHFLO 2 MG/VIAL ONE (23:10)
[2024-10-15] VITALS (7 sets, daily range): BP systolic 115–129; BP diastolic 60–79; TEMP 97.6–98.8; O2SAT 96–99
[2024-10-15] MEDS: ALTEPLASE CATHFLO 2 MG/VIAL XX ONE (09:34)
[2024-10-16] VITALS (7 sets, daily range): BP systolic 110–134; BP diastolic 62–80; TEMP 97.7–98.2; O2SAT 98–100
[2024-10-16] MEDS ORDERED: ALBUMIN 25% 100 ML IV ONE (22:46)
[2024-10-16] MEDS: ALBUMIN 25% 25 GM in PREMIX 1 EA IV PRN (22:55)
[2024-10-17 00:29] VITALS: BP 103/64; O2SAT 95
[2024-10-17 04:00] VITALS: BP 133/70; TEMP 97.8; O2SAT 98
[2024-10-17 07:08] LABS: BASOPHILS % (AUTO) 0.2 % (0.0-2.0); CALCIUM, SERUM 7.3 mg/dL (8.5-10.1); CREATININE 2.2 mg/dL (0.6-1.3); EOSINOPHILS # (AUTO) 0.1 K/uL (0.0-0.7); EOSINOPHILS % (AUTO) 1.4 % (0.0-6.0); HEMATOCRIT 23 % (39-51); HEMOGLOBIN 7.5 g/dL (13.5-17.5); LYMPHOCYTES # (AUTO) 0.7 K/uL (0.8-4.8); LYMPHOCYTES % (AUTO) 10.3 % (20.0-44.0); MEAN CORPUSCULAR HEMOGLOBIN 34 PG (26.0-33.0); MEAN CORPUSCULAR HGB CONC 33 g/dl (31.0-36.0); MEAN CORPUSCULAR VOLUME 104 fL (80-96); MONOCYTES # (AUTO) 0.6 K/uL (0.1-1.30); MONOCYTES % (AUTO) 9.3 % (2.0-12.0); NEUTROPHILS % (AUTO) 78.8 % (43.0-81.0); PLATELET COUNT (AUTO) 103 K/uL (150-450); POTASSIUM 3.1 mmol/L (3.5-5.1); RED BLOOD CELL COUNT(AUTO) 2.19 MIL/uL (4.5-6.0); RED CELL DISTRIBUTION WIDTH 16.2 % (11.5-15.0); WHITE BLOOD COUNT (AUTO) 6.4 K/uL (4.3-11.0)
[2024-10-17 08:00] VITALS: BP 136/68; TEMP 97.5; O2SAT 95
[2024-10-17] MEDS: PANTOPRAZOLE 40 MG/PACK PACK GT SCH (10:00)
[2024-10-17 10:55] LABS: BAND % (MANUAL) 2 % (0.0-5.0); EOSINOPHILS % (MANUAL) 1 % (0-4); LYMPHOCYTES % (MANUAL) 18 % (16-48); MONOCYTES % (MANUAL) 5 % (0-11.0); NEUTROPHILS % (MANUAL) 74 (42-76); PLATELET ESTIMATE DECREASED
[2024-10-17 10:56] LABS: ANISOCYTOSIS 1+
[2024-10-17 16:00] VITALS: BP 116/65; TEMP 97.7; O2SAT 100
[2024-10-17 20:00] VITALS: BP 145/62; TEMP 97.5; O2SAT 94
[2024-10-18 06:59] LABS: BASOPHILS % (AUTO) 0.2 % (0.0-2.0); EOSINOPHILS # (AUTO) 0.1 K/uL (0.0-0.7); HEMATOCRIT 24 % (39-51); HEMOGLOBIN 7.6 g/dL (13.5-17.5); LYMPHOCYTES # (AUTO) 0.6 K/uL (0.8-4.8); LYMPHOCYTES % (AUTO) 8.5 % (20.0-44.0); MEAN CORPUSCULAR HEMOGLOBIN 34 PG (26.0-33.0); MEAN CORPUSCULAR HGB CONC 33 g/dl (31.0-36.0); MEAN CORPUSCULAR VOLUME 104 fL (80-96); MONOCYTES # (AUTO) 0.7 K/uL (0.1-1.30); MONOCYTES % (AUTO) 9.6 % (2.0-12.0); NEUTROPHILS # (AUTO) 5.8 K/uL (1.8-8.9); NEUTROPHILS % (AUTO) 80.7 % (43.0-81.0); PLATELET COUNT (AUTO) 118 K/uL (150-450); RED BLOOD CELL COUNT(AUTO) 2.27 MIL/uL (4.5-6.0); WHITE BLOOD COUNT (AUTO) 7.2 K/uL (4.3-11.0)
[2024-10-18 07:10] LABS: CALCIUM, SERUM 7.7 mg/dL (8.5-10.1); CREATININE 2.4 mg/dL (0.6-1.3); POTASSIUM 3.2 mmol/L (3.5-5.1)
[2024-10-18 07:30] VITALS: BP 112/52; TEMP 98.1; O2SAT 92
[2024-10-18 08:44] LABS: BAND % (MANUAL) 1 % (0.0-5.0); EOSINOPHILS % (MANUAL) 1 % (0-4); LYMPHOCYTES % (MANUAL) 7 % (16-48); MONOCYTES % (MANUAL) 6 % (0-11.0); NEUTROPHILS % (MANUAL) 85 (42-76); PLATELET ESTIMATE DECREASED
[2024-10-18 08:45] LABS: ANISOCYTOSIS 1+; STOMATOCYTES 1+
[2024-10-18 16:00] VITALS: BP 107/62; TEMP 97.7; O2SAT 98
[2024-10-18 20:00] VITALS: BP 131/70; TEMP 98.1; O2SAT 99
[2024-10-19 04:00] VITALS: BP 104/65; TEMP 98.6; O2SAT 99
[2024-10-19 08:00] VITALS: BP 114/60; TEMP 99.5; O2SAT 96
[2024-10-19 16:00] VITALS: BP 105/60; TEMP 98.1; O2SAT 96
[2024-10-19 20:00] VITALS: BP 120/69; TEMP 97.9; O2SAT 98
[2024-10-20] VITALS (29 sets, daily range): BP systolic 39–161; BP diastolic 19–86; TEMP 97.3–98.9; O2SAT 95–100
[2024-10-20 18:17] LABS: ABG BASE EXCESS -6.2 mmol/L (-2.0-3.0); ABG OXYGEN SATURATION 99.6 % (94.0-98.0); ABG PCO2 55.5 mmHg (35.0-48.0); ABG PH 7.204 (7.350-7.450); ABG PO2 392.7 mmHg (83.0-108.0); ABG TOTAL HEMOGLOBIN 7.1 G/dL (13.5-17.5); COHb 0.3 % (0.5-1.5); MetHb 0.5 % (0.0-1.5); O2Hb 98.8 % (94.0-97.0); SITE, ABG LEFT RADIAL; VT, ABG 500 mL
[2024-10-20 18:23] LABS: LYMPHOCYTES # (AUTO) 0.4 K/uL (0.8-4.8); MEAN CORPUSCULAR HEMOGLOBIN 33 PG (26.0-33.0); RED CELL DISTRIBUTION WIDTH 16.1 % (11.5-15.0)
[2024-10-20] MEDS: PROPOFOL 100 ML IV PRN (18:28)
[2024-10-20 18:29] LABS: BASOPHILS % (AUTO) 0.1 % (0.0-2.0); EOSINOPHILS % (AUTO) 0.4 % (0.0-6.0); LYMPHOCYTES % (AUTO) 9.4 % (20.0-44.0); MEAN CORPUSCULAR HGB CONC 32 g/dl (31.0-36.0); MEAN CORPUSCULAR VOLUME 103 fL (80-96); MONOCYTES # (AUTO) 0.2 K/uL (0.1-1.30); MONOCYTES % (AUTO) 3.7 % (2.0-12.0); NEUTROPHILS # (AUTO) 3.7 K/uL (1.8-8.9); NEUTROPHILS % (AUTO) 86.4 % (43.0-81.0); PLATELET COUNT (AUTO) 119 K/uL (150-450); WHITE BLOOD COUNT (AUTO) 4.3 K/uL (4.3-11.0)
[2024-10-20 18:30] LABS: RED BLOOD CELL COUNT(AUTO) 1.95 MIL/uL (4.5-6.0)
[2024-10-20 18:37] LABS: HEMATOCRIT 20 % (39-51); HEMOGLOBIN 6.4 g/dL (13.5-17.5)
[2024-10-20] MEDS: NOREPINEPHRINE 8 MG in IV D5W 242 ML IV PRN (18:55)
[2024-10-20 18:59] LABS: CALCIUM, SERUM 8.7 mg/dL (8.5-10.1); CREATININE 2.3 mg/dL (0.6-1.3); POTASSIUM 2.9 mmol/L (3.5-5.1)
[2024-10-20 19:05] LABS: BILIRUBIN,TOTAL 0.2 mg/dL (0.2-1.0); TOTAL PROTEIN, SERUM 4.4 g/dL (6.4-8.2)
[2024-10-20 19:06] LABS: BAND % (MANUAL) 7 % (0.0-5.0); BASOPHILS % (MANUAL) 0 % (0.0-2.0); EOSINOPHILS % (MANUAL) 0 % (0-4); LYMPHOCYTES % (MANUAL) 10 % (16-48); MONOCYTES % (MANUAL) 3 % (0-11.0); NEUTROPHILS % (MANUAL) 80 (42-76); PLATELET ESTIMATE DECREASED
[2024-10-20 19:07] LABS: ANISOCYTOSIS 1+
[2024-10-20 19:15] LABS: ALBUMIN 1.2 g/dL (3.4-5.0)
[2024-10-20] MEDS ORDERED: ETOMIDATE 2 MG/ML VIAL IV ONE (19:32)
[2024-10-20] MEDS: POTASSIUM CL. PREMIX PERIPHER. 50 ML IV SCH (20:36)
[2024-10-20] MEDS ORDERED: EPINEPHRINE (1:10,000) SYRINGE 1 MG/10 ML DISP.SYRIN IVP ONE (20:48)
[2024-10-20 21:08] LABS: ABG OXYGEN SATURATION 99.7 % (94.0-98.0); ABG PCO2 37.7 mmHg (35.0-48.0); ABG PH 7.364 (7.350-7.450); ABG PO2 379.1 mmHg (83.0-108.0); COHb 0.3 % (0.5-1.5); MetHb 0.1 % (0.0-1.5); O2Hb 99.3 % (94.0-97.0); PEEP,BG 0 cm H2O; SITE, ABG RIGHT RADIAL; VT, ABG 500 mL
[2024-10-20] MEDS: MEROPENEM 500MG/NS 50 ML PB IV ONE (21:52)
[2024-10-20] MEDS: MEROPENEM 500 MG in IV NS 0.9% 50 ML IV ONE (21:57)
[2024-10-20] MEDS ORDERED: NS 0.9% IV ONE (22:00)
[2024-10-20] MEDS ORDERED: VANCOMYCIN HCL IV ONE (22:00)
[2024-10-20] MEDS: VANCOMYCIN 1 GM in IV NS 0.9% 250 ML IV ONE (22:35)
[2024-10-20] MEDS: VANCOMYCIN 1 GM /D5W 250 ML PB IV ONE (22:45)
[2024-10-20] MEDS: NOREPINEPHRINE 32 MG in IV NS 0.9% 218 ML IV PRN (23:13)
[2024-10-21] VITALS (93 sets, daily range): BP systolic 88–158; BP diastolic 32–88; TEMP 97.9–99.1; O2SAT 95–100
[2024-10-21 04:47] LABS: BASOPHILS % (AUTO) 0.5 % (0.0-2.0); EOSINOPHILS # (AUTO) 0.1 K/uL (0.0-0.7); HEMATOCRIT 28 % (39-51); HEMOGLOBIN 9.4 g/dL (13.5-17.5); LYMPHOCYTES # (AUTO) 0.6 K/uL (0.8-4.8); LYMPHOCYTES % (AUTO) 8.4 % (20.0-44.0); MEAN CORPUSCULAR HEMOGLOBIN 34 PG (26.0-33.0); MEAN CORPUSCULAR HGB CONC 34 g/dl (31.0-36.0); MEAN CORPUSCULAR VOLUME 100 fL (80-96); MONOCYTES # (AUTO) 0.4 K/uL (0.1-1.30); MONOCYTES % (AUTO) 6.2 % (2.0-12.0); NEUTROPHILS % (AUTO) 83.9 % (43.0-81.0); PLATELET COUNT (AUTO) 127 K/uL (150-450); WHITE BLOOD COUNT (AUTO) 7.2 K/uL (4.3-11.0)
[2024-10-21 04:53] LABS: CALCIUM, SERUM 8.6 mg/dL (8.5-10.1); CARBON DIOXIDE 24 mmol/L (21-32); CHLORIDE 109 mmol/L (98-107); CREATININE 2.4 mg/dL (0.6-1.3); GLUCOSE 187 mg/dL (74-106); MAGNESIUM 1.5 mg/dL (1.8-2.4); PHOSPHORUS 1.5 mg/dL (2.5-4.9); POTASSIUM 3.2 mmol/L (3.5-5.1); SODIUM SERUM 142 mmol/L (136-145); UREA NITROGEN, BLOOD 45 mg/dL (7-18)
[2024-10-21 05:04] LABS: LACTIC ACID 2.6 mmol/L (0.4-2.0)
[2024-10-21] MEDS: ALBUMIN 25% 12.5 GM/50 ML BOTTLE IV ONE (06:32)
[2024-10-21 08:57] LABS: ABG BASE EXCESS -0.9 mmol/L (-2.0-3.0); ABG OXYGEN SATURATION 98.6 % (94.0-98.0); ABG PCO2 24.2 mmHg (35.0-48.0); ABG PH 7.549 (7.350-7.450); ABG PO2 144.5 mmHg (83.0-108.0); ABG TOTAL HEMOGLOBIN 9.1 G/dL (13.5-17.5); MetHb 0.1 % (0.0-1.5); O2Hb 98.5 % (94.0-97.0); PEEP,BG 0 cm H2O; SITE, ABG LEFT RADIAL; VT, ABG 500 mL
[2024-10-21] MEDS ORDERED: MEROPENEM 500 MG in IV NS 0.9% 50 ML IV SCH (09:00)
[2024-10-21] MEDS: MAGNESIUM OXIDE 400 MG TABLET PO ONE (09:21)
[2024-10-21] MEDS: MEROPENEM 500 MG in IV NS 0.9% 50 ML IV SCH (09:21)
[2024-10-21] MEDS: POTASSIUM CL. PREMIX PERIPHER. 50 ML IV SCH (09:56)
[2024-10-21] MEDS ORDERED: CALCIUM CHLORIDE 1,000 MG/10 ML DISP.SYRIN IV ONE (12:16)
[2024-10-21] MEDS: NEUTRA PHOS 1 POWD.PACKET NG ONE (16:18)
[2024-10-21 17:58] LABS: BILIRUBIN,DIRECT 0.1 mg/dL (0.0-0.2)
[2024-10-22] VITALS (97 sets, daily range): BP systolic 76–152; BP diastolic 43–94; TEMP 96.4–99.3; O2SAT 99–100
[2024-10-22] MEDS: IPRATROPIUM NEB FS 0.5 MG/2.5 ML AMPUL.NEB NEB SCH (13:11)
[2024-10-22] MEDS: ALBUTEROL HALF STRENGTH 1.25 MG/3 ML VIAL.NEB NEB SCH (13:11)
[2024-10-22 14:09] LABS: CALCIUM, SERUM 7.8 mg/dL (8.5-10.1); CREATININE 2.9 mg/dL (0.6-1.3); POTASSIUM 3.2 mmol/L (3.5-5.1)
[2024-10-22] MEDS: MIDODRINE HCL (5MG) 5 MG TABLET PO SCH (17:06)
[2024-10-22] MEDS: VANCOMYCIN POST DIALYSIS 500MG IV PRN (23:30)
[2024-10-23] VITALS (86 sets, daily range): BP systolic 73–147; BP diastolic 40–94; TEMP 96.4–97.4; O2SAT 100
[2024-10-23] MEDS: LEVOTHYROXINE SODIUM 50 MCG TABLET GT SCH (08:16)
[2024-10-23 10:54] LABS: ABG OXYGEN SATURATION 97.3 % (94.0-98.0); ABG PCO2 47.8 mmHg (35.0-48.0); ABG PH 7.351 (7.350-7.450); ABG PO2 100.3 mmHg (83.0-108.0); ABG TOTAL HEMOGLOBIN 9.7 G/dL (13.5-17.5); COHb 0.3 % (0.5-1.5); MetHb 0.2 % (0.0-1.5); O2Hb 96.8 % (94.0-97.0); PEEP,BG 5 cm H2O; SITE, ABG RIGHT RADIAL
[2024-10-23 12:02] LABS: CREATININE 2.4 mg/dL (0.6-1.3); POTASSIUM 3.2 mmol/L (3.5-5.1)
[2024-10-23 12:11] LABS: BASOPHILS % (AUTO) 0.2 % (0.0-2.0); EOSINOPHILS # (AUTO) 0.1 K/uL (0.0-0.7); EOSINOPHILS % (AUTO) 1.5 % (0.0-6.0); HEMATOCRIT 28 % (39-51); HEMOGLOBIN 9.2 g/dL (13.5-17.5); LYMPHOCYTES # (AUTO) 0.4 K/uL (0.8-4.8); LYMPHOCYTES % (AUTO) 5.2 % (20.0-44.0); MEAN CORPUSCULAR HEMOGLOBIN 33 PG (26.0-33.0); MEAN CORPUSCULAR HGB CONC 33 g/dl (31.0-36.0); MEAN CORPUSCULAR VOLUME 100 fL (80-96); MONOCYTES # (AUTO) 0.5 K/uL (0.1-1.30); MONOCYTES % (AUTO) 6.9 % (2.0-12.0); NEUTROPHILS # (AUTO) 6.6 K/uL (1.8-8.9); NEUTROPHILS % (AUTO) 86.2 % (43.0-81.0); PLATELET COUNT (AUTO) 122 K/uL (150-450); RED BLOOD CELL COUNT(AUTO) 2.81 MIL/uL (4.5-6.0); RED CELL DISTRIBUTION WIDTH 15.4 % (11.5-15.0); WHITE BLOOD COUNT (AUTO) 7.7 K/uL (4.3-11.0)
[2024-10-23] MEDS: ALBUMIN 25% 25 GM in PREMIX 1 EA IV SCH (12:13)
[2024-10-23 15:25] LABS: BAND % (MANUAL) 1 % (0.0-5.0); EOSINOPHILS % (MANUAL) 2 % (0-4); LYMPHOCYTES % (MANUAL) 7 % (16-48); MONOCYTES % (MANUAL) 4 % (0-11.0); NEUTROPHILS % (MANUAL) 86 (42-76)
[2024-10-23 15:33] LABS: PLATELET ESTIMATE DECREASED
[2024-10-23 15:37] LABS: ANISOCYTOSIS 1+
[2024-10-24] VITALS (67 sets, daily range): BP systolic 92–143; BP diastolic 51–106; TEMP 96.5–99; O2SAT 97–100
[2024-10-25] VITALS (37 sets, daily range): BP systolic 99–127; BP diastolic 52–81; TEMP 97.4–98.6; O2SAT 91–100
[2024-10-25] MEDS: D5W IV SCH (21:35)
[2024-10-25] MEDS: GENTAMICIN IV SCH (21:35)
[2024-10-25] MEDS: GENTAMICIN 80 MG/2 ML VIAL ONE (21:36)
[2024-10-26] VITALS (70 sets, daily range): BP systolic 92–130; BP diastolic 52–81; TEMP 98–98.5; O2SAT 93–100
[2024-10-26 01:12] LABS: BASOPHILS % (AUTO) 0.4 % (0.0-2.0); EOSINOPHILS # (AUTO) 0.1 K/uL (0.0-0.7); EOSINOPHILS % (AUTO) 1.4 % (0.0-6.0); HEMATOCRIT 24 % (39-51); HEMOGLOBIN 8.2 g/dL (13.5-17.5); LYMPHOCYTES # (AUTO) 0.4 K/uL (0.8-4.8); LYMPHOCYTES % (AUTO) 7.6 % (20.0-44.0); MEAN CORPUSCULAR HEMOGLOBIN 33 PG (26.0-33.0); MEAN CORPUSCULAR HGB CONC 34 g/dl (31.0-36.0); MEAN CORPUSCULAR VOLUME 99 fL (80-96); MONOCYTES # (AUTO) 0.7 K/uL (0.1-1.30); MONOCYTES % (AUTO) 14.5 % (2.0-12.0); NEUTROPHILS # (AUTO) 3.6 K/uL (1.8-8.9); NEUTROPHILS % (AUTO) 76.1 % (43.0-81.0); PLATELET COUNT (AUTO) 149 K/uL (150-450); RED BLOOD CELL COUNT(AUTO) 2.48 MIL/uL (4.5-6.0); RED CELL DISTRIBUTION WIDTH 15.3 % (11.5-15.0); WHITE BLOOD COUNT (AUTO) 4.8 K/uL (4.3-11.0)
[2024-10-26 01:26] LABS: CALCIUM, SERUM 9.1 mg/dL (8.5-10.1); CREATININE 1.8 mg/dL (0.6-1.3); MAGNESIUM 1.6 mg/dL (1.8-2.4); PHOSPHORUS 2.3 mg/dL (2.5-4.9); POTASSIUM 3.4 mmol/L (3.5-5.1)
[2024-10-26] MEDS: GENTAMICIN 160 MG in IV D5W 100 ML IV ONE (08:59)
[2024-10-27] VITALS (37 sets, daily range): BP systolic 92–128; BP diastolic 48–73; TEMP 97.8–98.7; O2SAT 95–100
[2024-10-27 04:29] LABS: CALCIUM, SERUM 8.7 mg/dL (8.5-10.1); CREATININE 1.7 mg/dL (0.6-1.3); POTASSIUM 3.4 mmol/L (3.5-5.1)
[2024-10-28] VITALS (26 sets, daily range): BP systolic 99–133; BP diastolic 53–90; TEMP 97.5–98.6; O2SAT 89–100
[2024-10-28 04:09] LABS: BASOPHILS % (AUTO) 0.5 % (0.0-2.0); EOSINOPHILS # (AUTO) 0.2 K/uL (0.0-0.7); EOSINOPHILS % (AUTO) 2.9 % (0.0-6.0); HEMATOCRIT 22 % (39-51); HEMOGLOBIN 7.1 g/dL (13.5-17.5); LYMPHOCYTES # (AUTO) 0.6 K/uL (0.8-4.8); LYMPHOCYTES % (AUTO) 7.5 % (20.0-44.0); MEAN CORPUSCULAR HEMOGLOBIN 32 PG (26.0-33.0); MEAN CORPUSCULAR HGB CONC 33 g/dl (31.0-36.0); MEAN CORPUSCULAR VOLUME 98 fL (80-96); MONOCYTES # (AUTO) 0.8 K/uL (0.1-1.30); MONOCYTES % (AUTO) 10.3 % (2.0-12.0); NEUTROPHILS % (AUTO) 78.8 % (43.0-81.0); PLATELET COUNT (AUTO) 217 K/uL (150-450); RED CELL DISTRIBUTION WIDTH 15.5 % (11.5-15.0); WHITE BLOOD COUNT (AUTO) 7.7 K/uL (4.3-11.0)
[2024-10-28 04:28] LABS: CALCIUM, SERUM 8.9 mg/dL (8.5-10.1); CREATININE 2.4 mg/dL (0.6-1.3); MAGNESIUM 1.8 mg/dL (1.8-2.4); POTASSIUM 3.1 mmol/L (3.5-5.1)
[2024-10-28 05:34] LABS: ANISOCYTOSIS 1+; BAND % (MANUAL) 5 % (0.0-5.0); BASOPHILS % (MANUAL) 0 % (0.0-2.0); EOSINOPHILS % (MANUAL) 1 % (0-4); LYMPHOCYTES % (MANUAL) 10 % (16-48); MONOCYTES % (MANUAL) 12 % (0-11.0); NEUTROPHILS % (MANUAL) 72 (42-76); PLATELET ESTIMATE ADEQUATE
[2024-10-28] MEDS: POTASSIUM CL. PREMIX PERIPHER. 50 ML IV SCH (09:56)
[2024-10-28] MEDS: NEUTRA PHOS 1 POWD.PACKET NG ONE (16:31)
[2024-10-28 22:38] LABS: HEMOGLOBIN 7.3 g/dL (13.5-17.5)
[2024-10-29] VITALS (9 sets, daily range): BP systolic 100–139; BP diastolic 43–73; TEMP 97.3–99.9; O2SAT 97–100
[2024-10-29 09:33] LABS: ABG BASE EXCESS 4.1 mmol/L (-2.0-3.0); ABG OXYGEN SATURATION 94.4 % (94.0-98.0); ABG PCO2 58.2 mmHg (35.0-48.0); ABG PH 7.337 (7.350-7.450); ABG PO2 76.5 mmHg (83.0-108.0); ABG TOTAL HEMOGLOBIN 7.4 G/dL (13.5-17.5); COHb 0.6 % (0.5-1.5); MetHb 0.1 % (0.0-1.5); O2Hb 93.7 % (94.0-97.0)
[2024-10-29] MEDS: EPOETIN ALFA (10,000 UNIT) 10,000 UNIT/ML VIAL IV ONE (09:36)
[2024-10-29 12:03] LABS: CALCIUM, SERUM 7.8 mg/dL (8.5-10.1); CARBON DIOXIDE 28 mmol/L (21-32); CHLORIDE 113 mmol/L (98-107); CREATININE 1.7 mg/dL (0.6-1.3); GLUCOSE 166 mg/dL (74-106); MAGNESIUM 1.6 mg/dL (1.8-2.4); PHOSPHORUS 1.5 mg/dL (2.5-4.9); POTASSIUM 3.1 mmol/L (3.5-5.1); SODIUM SERUM 143 mmol/L (136-145); UREA NITROGEN, BLOOD 27 mg/dL (7-18)
[2024-10-29 14:18] LABS: BASOPHILS # (AUTO) 0.1 K/uL (0.0-0.2); BASOPHILS % (AUTO) 0.6 % (0.0-2.0); EOSINOPHILS # (AUTO) 0.2 K/uL (0.0-0.7); EOSINOPHILS % (AUTO) 2.1 % (0.0-6.0); HEMATOCRIT 22 % (39-51); LYMPHOCYTES # (AUTO) 0.7 K/uL (0.8-4.8); LYMPHOCYTES % (AUTO) 7.4 % (20.0-44.0); MEAN CORPUSCULAR HEMOGLOBIN 32 PG (26.0-33.0); MEAN CORPUSCULAR HGB CONC 32 g/dl (31.0-36.0); MEAN CORPUSCULAR VOLUME 98 fL (80-96); MONOCYTES # (AUTO) 1.1 K/uL (0.1-1.30); MONOCYTES % (AUTO) 11.2 % (2.0-12.0); NEUTROPHILS # (AUTO) 7.5 K/uL (1.8-8.9); NEUTROPHILS % (AUTO) 78.7 % (43.0-81.0); PLATELET COUNT (AUTO) 268 K/uL (150-450); RED CELL DISTRIBUTION WIDTH 15.9 % (11.5-15.0); WHITE BLOOD COUNT (AUTO) 9.5 K/uL (4.3-11.0)
[2024-10-29] MEDS: NEUTRA PHOS 1 POWD.PACKET NG ONE ×2 (19:30→23:30)
[2024-10-29] MEDS ORDERED: ALBUMIN 25% 25 GM in PREMIX 1 EA IV PRN (20:30)
[2024-10-29] MEDS: GENTAMICIN 100 MG in IV D5W 50 ML IV PRN (22:20)
[2024-10-30] VITALS: BP 110/56; TEMP 97.3; O2SAT 100
[2024-10-30 04:00] VITALS: BP 108/58; TEMP 97.6; O2SAT 100
[2024-10-30 07:50] LABS: ABG BASE EXCESS 0.9 mmol/L (-2.0-3.0); ABG OXYGEN SATURATION 95.8 % (94.0-98.0); ABG PCO2 44.2 mmHg (35.0-48.0); ABG PH 7.388 (7.350-7.450); ABG PO2 84.8 mmHg (83.0-108.0); ABG TOTAL HEMOGLOBIN 8.8 G/dL (13.5-17.5); COHb 0.1 % (0.5-1.5); MetHb 0.2 % (0.0-1.5); O2Hb 95.5 % (94.0-97.0); SITE, ABG RIGHT RADIAL
[2024-10-30 08:00] VITALS: BP 99/46; TEMP 97.3; O2SAT 98
[2024-10-30 08:18] LABS: BASOPHILS % (AUTO) 0.4 % (0.0-2.0); EOSINOPHILS # (AUTO) 0.2 K/uL (0.0-0.7); EOSINOPHILS % (AUTO) 1.6 % (0.0-6.0); HEMATOCRIT 25 % (39-51); HEMOGLOBIN 8.3 g/dL (13.5-17.5); LYMPHOCYTES # (AUTO) 0.5 K/uL (0.8-4.8); LYMPHOCYTES % (AUTO) 5.4 % (20.0-44.0); MEAN CORPUSCULAR HEMOGLOBIN 32 PG (26.0-33.0); MEAN CORPUSCULAR HGB CONC 33 g/dl (31.0-36.0); MEAN CORPUSCULAR VOLUME 97 fL (80-96); MONOCYTES # (AUTO) 0.8 K/uL (0.1-1.30); MONOCYTES % (AUTO) 7.4 % (2.0-12.0); NEUTROPHILS # (AUTO) 8.7 K/uL (1.8-8.9); NEUTROPHILS % (AUTO) 85.2 % (43.0-81.0); PLATELET COUNT (AUTO) 272 K/uL (150-450); RED BLOOD CELL COUNT(AUTO) 2.56 MIL/uL (4.5-6.0); RED CELL DISTRIBUTION WIDTH 15.4 % (11.5-15.0); WHITE BLOOD COUNT (AUTO) 10.2 K/uL (4.3-11.0)
[2024-10-30 08:27] LABS: CREATININE 1.8 mg/dL (0.6-1.3); MAGNESIUM 1.9 mg/dL (1.8-2.4); PHOSPHORUS 1.5 mg/dL (2.5-4.9); POTASSIUM 3.3 mmol/L (3.5-5.1)
[2024-10-30] MEDS: POTASSIUM CL. PREMIX PERIPHER. 50 ML IV SCH (11:42)
[2024-10-30 11:56] LABS: BAND % (MANUAL) 16 % (0.0-5.0); LYMPHOCYTES % (MANUAL) 7 % (16-48); MONOCYTES % (MANUAL) 5 % (0-11.0)
[2024-10-30 11:57] LABS: MYELOCYTES % 1 % (0-0); NEUTROPHILS % (MANUAL) 71 (42-76); PLATELET ESTIMATE ADEQUATE
[2024-10-30 11:58] LABS: STOMATOCYTES 1+
[2024-10-30 12:00] VITALS: BP 94/59; TEMP 97.5; O2SAT 98
[2024-10-30 16:00] VITALS: BP 100/58; TEMP 97.6; O2SAT 98
[2024-10-30] MEDS: NEUTRA PHOS 1 POWD.PACKET NG ONE (16:43)
[2024-10-30 20:00] VITALS: BP 107/55; TEMP 97.3; O2SAT 98
[2024-10-31] VITALS: BP 122/66; TEMP 98.1; O2SAT 98
[2024-10-31 04:00] VITALS: BP 122/66; TEMP 98.2; O2SAT 98
[2024-10-31 08:00] VITALS: BP 109/79; TEMP 97.9; O2SAT 99
[2024-10-31] MEDS: PROSOURCE / PROSTAT (PYXIS) 30 ML UDC GT SCH (09:48)
[2024-10-31] MEDS ORDERED: MAG HYDROX/AL HYDROX/SIMETH 30 ML UDC GT PRN (09:50)
[2024-10-31] MEDS ORDERED: MIDODRINE HCL (5MG) 5 MG TABLET GT SCH (09:51)
[2024-10-31] MEDS ORDERED: MAGNESIUM HYDROXIDE 30 ML UDC GT PRN (09:51)
[2024-10-31] MEDS ORDERED: GUAIFENESIN 300 MG/15 ML UDC GT PRN (09:51)
[2024-10-31 12:00] VITALS: BP 121/52; TEMP 97.2; O2SAT 99
[2024-10-31 12:59] LABS: CREATININE 1.8 mg/dL (0.6-1.3); MAGNESIUM 1.8 mg/dL (1.8-2.4); PHOSPHORUS 1.9 mg/dL (2.5-4.9); POTASSIUM 3.4 mmol/L (3.5-5.1)
[2024-10-31 13:56] LABS: BASOPHILS % (AUTO) 0.4 % (0.0-2.0); EOSINOPHILS # (AUTO) 0.1 K/uL (0.0-0.7); EOSINOPHILS % (AUTO) 0.9 % (0.0-6.0); HEMATOCRIT 24 % (39-51); HEMOGLOBIN 8.1 g/dL (13.5-17.5); LYMPHOCYTES # (AUTO) 0.8 K/uL (0.8-4.8); LYMPHOCYTES % (AUTO) 7.4 % (20.0-44.0); MEAN CORPUSCULAR HEMOGLOBIN 33 PG (26.0-33.0); MEAN CORPUSCULAR HGB CONC 34 g/dl (31.0-36.0); MEAN CORPUSCULAR VOLUME 98 fL (80-96); MONOCYTES # (AUTO) 1.1 K/uL (0.1-1.30); MONOCYTES % (AUTO) 9.5 % (2.0-12.0); NEUTROPHILS % (AUTO) 81.8 % (43.0-81.0); PLATELET COUNT (AUTO) 285 K/uL (150-450); RED BLOOD CELL COUNT(AUTO) 2.48 MIL/uL (4.5-6.0); RED CELL DISTRIBUTION WIDTH 15.9 % (11.5-15.0); WHITE BLOOD COUNT (AUTO) 11.1 K/uL (4.3-11.0)
[2024-10-31 16:00] VITALS: BP 111/68; TEMP 97.1; O2SAT 100
[2024-10-31] MEDS: MIDODRINE HCL (5MG) 5 MG TABLET GT SCH (18:17)
[2024-10-31 18:50] LABS: ANISOCYTOSIS 1+; BAND % (MANUAL) 2 % (0.0-5.0); EOSINOPHILS % (MANUAL) 1 % (0-4); HYPOCHROMASIA 1+; LYMPHOCYTES % (MANUAL) 12 % (16-48); METAMYELOCYTES % 3 % (0-0); MONOCYTES % (MANUAL) 9 % (0-11.0); MYELOCYTES % 1 % (0-0); NEUTROPHILS % (MANUAL) 72 (42-76); PLATELET ESTIMATE ADEQUATE
[2024-10-31 20:00] VITALS: BP 122/56; TEMP 95.5; O2SAT 100
[2024-11-01] VITALS (16 sets, daily range): BP systolic 80–116; BP diastolic 44–64; TEMP 97.9–99.9; O2SAT 92–98
[2024-11-01 07:20] LABS: BASOPHILS # (AUTO) 0.1 K/uL (0.0-0.2); BASOPHILS % (AUTO) 0.7 % (0.0-2.0); EOSINOPHILS # (AUTO) 0.1 K/uL (0.0-0.7); EOSINOPHILS % (AUTO) 0.8 % (0.0-6.0); HEMATOCRIT 25 % (39-51); LYMPHOCYTES # (AUTO) 1.1 K/uL (0.8-4.8); LYMPHOCYTES % (AUTO) 9.8 % (20.0-44.0); MEAN CORPUSCULAR HEMOGLOBIN 32 PG (26.0-33.0); MEAN CORPUSCULAR HGB CONC 33 g/dl (31.0-36.0); MEAN CORPUSCULAR VOLUME 97 fL (80-96); MONOCYTES # (AUTO) 0.9 K/uL (0.1-1.30); MONOCYTES % (AUTO) 7.7 % (2.0-12.0); PLATELET COUNT (AUTO) 318 K/uL (150-450); RED BLOOD CELL COUNT(AUTO) 2.53 MIL/uL (4.5-6.0); RED CELL DISTRIBUTION WIDTH 15.7 % (11.5-15.0); WHITE BLOOD COUNT (AUTO) 11.1 K/uL (4.3-11.0)
[2024-11-01 07:39] LABS: CALCIUM, SERUM 9.2 mg/dL (8.5-10.1); CREATININE 2.3 mg/dL (0.6-1.3); MAGNESIUM 1.9 mg/dL (1.8-2.4); PHOSPHORUS 1.6 mg/dL (2.5-4.9); POTASSIUM 3.5 mmol/L (3.5-5.1)
[2024-11-01] MEDS: EPOETIN ALFA (10,000 UNIT) 10,000 UNIT/ML VIAL IV ONE (09:02)
[2024-11-01 10:05] LABS: BAND % (MANUAL) 1 % (0.0-5.0); EOSINOPHILS % (MANUAL) 1 % (0-4); LYMPHOCYTES % (MANUAL) 19 % (16-48); MONOCYTES % (MANUAL) 5 % (0-11.0); MYELOCYTES % 7 % (0-0); NEUTROPHILS % (MANUAL) 67 (42-76); PLATELET ESTIMATE ADEQUATE
[2024-11-01 10:05] LABS: ABG BASE EXCESS 3.6 mmol/L (-2.0-3.0); ABG OXYGEN SATURATION 96.8 % (94.0-98.0); ABG PCO2 62.8 mmHg (35.0-48.0); ABG PH 7.308 (7.350-7.450); ABG PO2 93.9 mmHg (83.0-108.0); ABG TOTAL HEMOGLOBIN 8.8 G/dL (13.5-17.5); COHb 0.3 % (0.5-1.5); MetHb 0.2 % (0.0-1.5); O2Hb 96.3 % (94.0-97.0); SITE, ABG RIGHT BRACHIAL
[2024-11-01 10:07] LABS: ANISOCYTOSIS 1+; HYPOCHROMASIA 1+
[2024-11-01] MEDS: NEUTRA PHOS 1 POWD.PACKET NG ONE (16:48)
[2024-11-01] MEDS: ACETAMINOPHEN 650 MG/20.3 ML UDC GT PRN (21:31)
[2024-11-02] VITALS (40 sets, daily range): BP systolic 74–167; BP diastolic 37–104; TEMP 97.7–98; O2SAT 86–100
[2024-11-02 09:13] LABS: ABG BASE EXCESS -1.2 mmol/L (-2.0-3.0); ABG OXYGEN SATURATION 90.2 % (94.0-98.0); ABG PCO2 62.6 mmHg (35.0-48.0); ABG PH 7.244 (7.350-7.450); ABG TOTAL HEMOGLOBIN 8.4 G/dL (13.5-17.5); COHb 0.5 % (0.5-1.5); MetHb 0.3 % (0.0-1.5); O2Hb 89.5 % (94.0-97.0); SITE, ABG RIGHT BRACHIAL
[2024-11-02] MEDS: NOREPINEPHRINE 8 MG in IV D5W 242 ML IV PRN (20:54)
[2024-11-03] VITALS (116 sets, daily range): BP systolic 50–149; BP diastolic 29–80; TEMP 96.2–100.8; O2SAT 99–100
[2024-11-03 04:39] LABS: BASOPHILS % (AUTO) 0.2 % (0.0-2.0); EOSINOPHILS # (AUTO) 0.1 K/uL (0.0-0.7); EOSINOPHILS % (AUTO) 0.6 % (0.0-6.0); HEMATOCRIT 22 % (39-51); LYMPHOCYTES # (AUTO) 0.6 K/uL (0.8-4.8); LYMPHOCYTES % (AUTO) 5.4 % (20.0-44.0); MEAN CORPUSCULAR HEMOGLOBIN 32 PG (26.0-33.0); MEAN CORPUSCULAR HGB CONC 32 g/dl (31.0-36.0); MEAN CORPUSCULAR VOLUME 99 fL (80-96); MONOCYTES # (AUTO) 1.1 K/uL (0.1-1.30); MONOCYTES % (AUTO) 10.8 % (2.0-12.0); NEUTROPHILS # (AUTO) 8.8 K/uL (1.8-8.9); PLATELET COUNT (AUTO) 249 K/uL (150-450); RED BLOOD CELL COUNT(AUTO) 2.17 MIL/uL (4.5-6.0); WHITE BLOOD COUNT (AUTO) 10.6 K/uL (4.3-11.0)
[2024-11-03 04:46] LABS: HEMOGLOBIN 6.9 g/dL (13.5-17.5)
[2024-11-03 04:56] LABS: CALCIUM, SERUM 8.3 mg/dL (8.5-10.1); CREATININE 2.1 mg/dL (0.6-1.3); PHOSPHORUS 2.9 mg/dL (2.5-4.9); POTASSIUM 3.3 mmol/L (3.5-5.1)
[2024-11-03 07:24] LABS: BAND % (MANUAL) 4 % (0.0-5.0); LYMPHOCYTES % (MANUAL) 9 % (16-48); MONOCYTES % (MANUAL) 10 % (0-11.0); MYELOCYTES % 4 % (0-0); NEUTROPHILS % (MANUAL) 73 (42-76); PLATELET ESTIMATE ADEQUATE
[2024-11-03 07:25] LABS: ANISOCYTOSIS 1+; STOMATOCYTES 1+
[2024-11-03 08:06] LABS: OCCULT BLOOD STOOL POSITIVE (NEGATIVE)
[2024-11-03 09:20] LABS: ABG BASE EXCESS 0.2 mmol/L (-2.0-3.0); ABG OXYGEN SATURATION 99.2 % (94.0-98.0); ABG PCO2 82.6 mmHg (35.0-48.0); ABG PH 7.173 (7.350-7.450); ABG PO2 185.7 mmHg (83.0-108.0); ABG TOTAL HEMOGLOBIN 8.9 G/dL (13.5-17.5); COHb 0.1 % (0.5-1.5); MetHb 0.1 % (0.0-1.5); SITE, ABG RIGHT RADIAL
[2024-11-03] MEDS: POTASSIUM CL. PREMIX PERIPHER. 50 ML IV SCH (09:50)
[2024-11-03] MEDS ORDERED: OCTREOTIDE 500 MCG in IV NS 0.9% 99 ML IV PRN (10:30)
[2024-11-03] MEDS: OCTREOTIDE 50 MCG in IV NS 0.9% 50 ML IV ONE (11:13)
[2024-11-03] MEDS: SUCRALFATE 1 G/10 ML UDC GT SCH (11:37)
[2024-11-03] MEDS: OCTREOTIDE 1,250 MCG in IV NS 0.9% 247.5 ML IV PRN (14:39)
[2024-11-03 17:09] LABS: IRON, SERUM 36 ug/dl (50-175); TOTAL IRON BINDING CAPACITY 116 ug/dl (250-450)
[2024-11-03 17:43] LABS: FERRITIN 2948 ng/mL (8-388)
[2024-11-03] MEDS: MEROPENEM 500 MG in IV NS 0.9% 50 ML IV SCH (18:58)
[2024-11-04] VITALS (100 sets, daily range): BP systolic 49–169; BP diastolic 31–119; TEMP 98.4–99.9; O2SAT 98–100
[2024-11-04 04:53] LABS: BASOPHILS % (AUTO) 0.3 % (0.0-2.0); EOSINOPHILS % (AUTO) 0.3 % (0.0-6.0); HEMATOCRIT 28 % (39-51); HEMOGLOBIN 9.2 g/dL (13.5-17.5); LYMPHOCYTES # (AUTO) 0.7 K/uL (0.8-4.8); LYMPHOCYTES % (AUTO) 5.3 % (20.0-44.0); MEAN CORPUSCULAR HEMOGLOBIN 32 PG (26.0-33.0); MEAN CORPUSCULAR HGB CONC 33 g/dl (31.0-36.0); MEAN CORPUSCULAR VOLUME 96 fL (80-96); MONOCYTES # (AUTO) 1.2 K/uL (0.1-1.30); NEUTROPHILS # (AUTO) 11.2 K/uL (1.8-8.9); NEUTROPHILS % (AUTO) 85.1 % (43.0-81.0); PLATELET COUNT (AUTO) 228 K/uL (150-450); RED BLOOD CELL COUNT(AUTO) 2.92 MIL/uL (4.5-6.0); RED CELL DISTRIBUTION WIDTH 16.4 % (11.5-15.0); WHITE BLOOD COUNT (AUTO) 13.1 K/uL (4.3-11.0)
[2024-11-04 04:58] LABS: ALBUMIN 2.3 g/dL (3.4-5.0); BILIRUBIN,DIRECT 0.2 mg/dL (0.0-0.2); BILIRUBIN,TOTAL 0.4 mg/dL (0.2-1.0); CALCIUM, SERUM 7.8 mg/dL (8.5-10.1); MAGNESIUM 1.9 mg/dL (1.8-2.4); PHOSPHORUS 1.1 mg/dL (2.5-4.9)
[2024-11-04 05:16] LABS: POTASSIUM 2.8 mmol/L (3.5-5.1)
[2024-11-04 06:14] LABS: BAND % (MANUAL) 4 % (0.0-5.0); BASOPHILS % (MANUAL) 0 % (0.0-2.0); EOSINOPHILS % (MANUAL) 0 % (0-4); LYMPHOCYTES % (MANUAL) 7 % (16-48); MONOCYTES % (MANUAL) 15 % (0-11.0); NEUTROPHILS % (MANUAL) 74 (42-76)
[2024-11-04 06:15] LABS: ANISOCYTOSIS 1+; PLATELET ESTIMATE ADEQUATE
[2024-11-04] MEDS: NEUTRA PHOS 1 POWD.PACKET NG ONE (06:37)
[2024-11-04] MEDS: POTASSIUM CHLORIDE 20 MEQ POWDER PACKET NG SCH (09:38)
[2024-11-04 10:34] LABS: ABG BASE EXCESS 3.6 mmol/L (-2.0-3.0); ABG OXYGEN SATURATION 98.8 % (94.0-98.0); ABG PCO2 64.5 mmHg (35.0-48.0); ABG PH 7.303 (7.350-7.450); ABG PO2 149.4 mmHg (83.0-108.0); ABG TOTAL HEMOGLOBIN 10.5 G/dL (13.5-17.5); COHb 0.3 % (0.5-1.5); MetHb 0.2 % (0.0-1.5); O2Hb 98.3 % (94.0-97.0)
[2024-11-04] MEDS: POTASSIUM CL. PREMIX PERIPHER. 50 ML IV SCH (10:48)
[2024-11-04] MEDS: VANCOMYCIN 1 GM /D5W 250 ML PB IV ONE (22:21)
[2024-11-04] MEDS: VANCOMYCIN 1 GM in IV D5W 250ml IV ONE (22:29)
[2024-11-04] MEDS ORDERED: VANCOMYCIN 500 MG VIAL ONE (23:17)
[2024-11-04] MEDS: VANCOMYCIN HCL 125 MG/2.5 ML ORAL.SUSP PO SCH (23:55)
[2024-11-05] VITALS (87 sets, daily range): BP systolic 67–136; BP diastolic 39–105; TEMP 97.4–99.4; O2SAT 94–100
[2024-11-05 05:31] LABS: BASOPHILS % (AUTO) 0.3 % (0.0-2.0); EOSINOPHILS # (AUTO) 0.1 K/uL (0.0-0.7); EOSINOPHILS % (AUTO) 0.4 % (0.0-6.0); HEMATOCRIT 28 % (39-51); HEMOGLOBIN 9.3 g/dL (13.5-17.5); LYMPHOCYTES # (AUTO) 0.5 K/uL (0.8-4.8); LYMPHOCYTES % (AUTO) 3.1 % (20.0-44.0); MEAN CORPUSCULAR HEMOGLOBIN 32 PG (26.0-33.0); MEAN CORPUSCULAR HGB CONC 33 g/dl (31.0-36.0); MEAN CORPUSCULAR VOLUME 96 fL (80-96); MONOCYTES % (AUTO) 6.5 % (2.0-12.0); NEUTROPHILS # (AUTO) 13.8 K/uL (1.8-8.9); NEUTROPHILS % (AUTO) 89.7 % (43.0-81.0); PLATELET COUNT (AUTO) 217 K/uL (150-450); RED BLOOD CELL COUNT(AUTO) 2.94 MIL/uL (4.5-6.0); RED CELL DISTRIBUTION WIDTH 16.4 % (11.5-15.0); WHITE BLOOD COUNT (AUTO) 15.3 K/uL (4.3-11.0)
[2024-11-05 05:33] LABS: CALCIUM, SERUM 8.4 mg/dL (8.5-10.1); CREATININE 2.6 mg/dL (0.6-1.3); POTASSIUM 3.4 mmol/L (3.5-5.1)
[2024-11-05] MEDS: NEUTRA PHOS 1 POWD.PACKET NG ONE (07:00)
[2024-11-05 08:49] LABS: BAND % (MANUAL) 1 % (0.0-5.0); EOSINOPHILS % (MANUAL) 1 % (0-4); LYMPHOCYTES % (MANUAL) 8 % (16-48); METAMYELOCYTES % 1 % (0-0); MONOCYTES % (MANUAL) 10 % (0-11.0); MYELOCYTES % 4 % (0-0); NEUTROPHILS % (MANUAL) 75 (42-76)
[2024-11-05 08:51] LABS: PLATELET ESTIMATE ADEQUATE
[2024-11-05 10:14] LABS: ABG BASE EXCESS 1.3 mmol/L (-2.0-3.0); ABG OXYGEN SATURATION 96.7 % (94.0-98.0); ABG PCO2 43.8 mmHg (35.0-48.0); ABG PH 7.398 (7.350-7.450); ABG PO2 81.7 mmHg (83.0-108.0); ABG TOTAL HEMOGLOBIN 9.8 G/dL (13.5-17.5); COHb 0.3 % (0.5-1.5); MetHb 0.2 % (0.0-1.5); O2Hb 96.2 % (94.0-97.0); SITE, ABG RIGHT RADIAL
[2024-11-05] MEDS: OCTREOTIDE 1,250 MCG in IV NS 0.9% 247.5 ML IV SCH (13:53)
[2024-11-06] VITALS (40 sets, daily range): BP systolic 86–140; BP diastolic 39–90; TEMP 98–99.1; O2SAT 95–99
[2024-11-06 04:45] LABS: BASOPHILS % (AUTO) 0.2 % (0.0-2.0); EOSINOPHILS # (AUTO) 0.1 K/uL (0.0-0.7); EOSINOPHILS % (AUTO) 0.5 % (0.0-6.0); HEMATOCRIT 29 % (39-51); HEMOGLOBIN 9.2 g/dL (13.5-17.5); LYMPHOCYTES # (AUTO) 0.5 K/uL (0.8-4.8); MEAN CORPUSCULAR HEMOGLOBIN 31 PG (26.0-33.0); MEAN CORPUSCULAR HGB CONC 32 g/dl (31.0-36.0); MEAN CORPUSCULAR VOLUME 95 fL (80-96); MONOCYTES # (AUTO) 1.1 K/uL (0.1-1.30); MONOCYTES % (AUTO) 8.9 % (2.0-12.0); NEUTROPHILS # (AUTO) 10.7 K/uL (1.8-8.9); NEUTROPHILS % (AUTO) 86.4 % (43.0-81.0); PLATELET COUNT (AUTO) 194 K/uL (150-450); RED BLOOD CELL COUNT(AUTO) 2.99 MIL/uL (4.5-6.0); RED CELL DISTRIBUTION WIDTH 16.3 % (11.5-15.0); WHITE BLOOD COUNT (AUTO) 12.4 K/uL (4.3-11.0)
[2024-11-06 05:10] LABS: CREATININE 2.2 mg/dL (0.6-1.3); PHOSPHORUS 1.1 mg/dL (2.5-4.9); POTASSIUM 3.5 mmol/L (3.5-5.1)
[2024-11-06 06:41] LABS: BASOPHILS % (MANUAL) 0 % (0.0-2.0); EOSINOPHILS % (MANUAL) 1 % (0-4); LYMPHOCYTES % (MANUAL) 12 % (16-48); MONOCYTES % (MANUAL) 7 % (0-11.0); NEUTROPHILS % (MANUAL) 80 (42-76); PLATELET ESTIMATE ADEQUATE
[2024-11-06 06:42] LABS: ANISOCYTOSIS 1+; HYPOCHROMASIA 1+; STOMATOCYTES FEW
[2024-11-06 06:43] LABS: NUCLEATED RED BLOOD CELLS 11.3 /100WBC (0.0-0.0)
[2024-11-06 07:36] LABS: ABG PCO2 45.7 mmHg (35.0-48.0); ABG PH 7.394 (7.350-7.450); ABG PO2 63.5 mmHg (83.0-108.0); ABG TOTAL HEMOGLOBIN 10.7 G/dL (13.5-17.5); COHb 0.1 % (0.5-1.5); MetHb 0.3 % (0.0-1.5); O2Hb 93.6 % (94.0-97.0); SITE, ABG RIGHT RADIAL
[2024-11-07] VITALS (19 sets, daily range): BP systolic 84–129; BP diastolic 34–62; TEMP 97.3–98.8; O2SAT 97–99
[2024-11-07 05:00] LABS: BASOPHILS % (AUTO) 0.3 % (0.0-2.0); EOSINOPHILS # (AUTO) 0.1 K/uL (0.0-0.7); EOSINOPHILS % (AUTO) 0.5 % (0.0-6.0); HEMATOCRIT 28 % (39-51); HEMOGLOBIN 9.3 g/dL (13.5-17.5); LYMPHOCYTES # (AUTO) 0.7 K/uL (0.8-4.8); MEAN CORPUSCULAR HEMOGLOBIN 32 PG (26.0-33.0); MEAN CORPUSCULAR HGB CONC 33 g/dl (31.0-36.0); MEAN CORPUSCULAR VOLUME 95 fL (80-96); MONOCYTES # (AUTO) 1.7 K/uL (0.1-1.30); NEUTROPHILS # (AUTO) 11.9 K/uL (1.8-8.9); NEUTROPHILS % (AUTO) 82.2 % (43.0-81.0); PLATELET COUNT (AUTO) 186 K/uL (150-450); RED BLOOD CELL COUNT(AUTO) 2.92 MIL/uL (4.5-6.0); RED CELL DISTRIBUTION WIDTH 16.5 % (11.5-15.0); WHITE BLOOD COUNT (AUTO) 14.4 K/uL (4.3-11.0)
[2024-11-07 05:21] LABS: ALBUMIN 1.7 g/dL (3.4-5.0); BILIRUBIN,TOTAL 0.5 mg/dL (0.2-1.0); CALCIUM, SERUM 8.5 mg/dL (8.5-10.1); CREATININE 2.8 mg/dL (0.6-1.3); MAGNESIUM 1.9 mg/dL (1.8-2.4); POTASSIUM 3.3 mmol/L (3.5-5.1); TOTAL PROTEIN, SERUM 4.6 g/dL (6.4-8.2)
[2024-11-07 05:27] LABS: PHOSPHORUS 0.8 mg/dL (2.5-4.9)
[2024-11-07 06:24] LABS: BAND % (MANUAL) 1 % (0.0-5.0); EOSINOPHILS % (MANUAL) 0 % (0-4); LYMPHOCYTES % (MANUAL) 10 % (16-48); MONOCYTES % (MANUAL) 6 % (0-11.0); NEUTROPHILS % (MANUAL) 83 (42-76)
[2024-11-07 06:25] LABS: ANISOCYTOSIS 1+; PLATELET ESTIMATE ADEQUATE
[2024-11-07 06:26] LABS: HYPOCHROMASIA FEW
[2024-11-07] MEDS ORDERED: NS 0.9% IV SCH (06:30)
[2024-11-07] MEDS ORDERED: POTASSIUM PHOSPHATE MM IV SCH (06:30)
[2024-11-07] MEDS: NS 0.9% IV ONE (07:17)
[2024-11-07] MEDS: POTASSIUM PHOSPHATE MM IV ONE (07:17)
[2024-11-07 09:59] LABS: ABG BASE EXCESS 0.2 mmol/L (-2.0-3.0); ABG OXYGEN SATURATION 96.2 % (94.0-98.0); ABG PCO2 44.1 mmHg (35.0-48.0); ABG PO2 81.4 mmHg (83.0-108.0); ABG TOTAL HEMOGLOBIN 10.2 G/dL (13.5-17.5); COHb 0.3 % (0.5-1.5); MetHb 0.3 % (0.0-1.5); O2Hb 95.6 % (94.0-97.0); SITE, ABG RIGHT RADIAL
[2024-11-08] VITALS (7 sets, daily range): BP systolic 102–137; BP diastolic 46–69; TEMP 97.7–99; O2SAT 97–100
[2024-11-08 08:17] LABS: BASOPHILS # (AUTO) 0.1 K/uL (0.0-0.2); BASOPHILS % (AUTO) 0.5 % (0.0-2.0); EOSINOPHILS # (AUTO) 0.1 K/uL (0.0-0.7); EOSINOPHILS % (AUTO) 0.5 % (0.0-6.0); HEMATOCRIT 29 % (39-51); HEMOGLOBIN 9.3 g/dL (13.5-17.5); LYMPHOCYTES # (AUTO) 0.7 K/uL (0.8-4.8); MEAN CORPUSCULAR HEMOGLOBIN 31 PG (26.0-33.0); MEAN CORPUSCULAR HGB CONC 33 g/dl (31.0-36.0); MEAN CORPUSCULAR VOLUME 95 fL (80-96); MONOCYTES # (AUTO) 1.2 K/uL (0.1-1.30); MONOCYTES % (AUTO) 8.2 % (2.0-12.0); NEUTROPHILS # (AUTO) 12.3 K/uL (1.8-8.9); NEUTROPHILS % (AUTO) 85.8 % (43.0-81.0); PLATELET COUNT (AUTO) 196 K/uL (150-450); RED BLOOD CELL COUNT(AUTO) 3.01 MIL/uL (4.5-6.0); RED CELL DISTRIBUTION WIDTH 16.3 % (11.5-15.0); WHITE BLOOD COUNT (AUTO) 14.3 K/uL (4.3-11.0)
[2024-11-08 08:30] LABS: CALCIUM, SERUM 8.7 mg/dL (8.5-10.1); CREATININE 2.5 mg/dL (0.6-1.3); PHOSPHORUS 1.8 mg/dL (2.5-4.9); POTASSIUM 3.4 mmol/L (3.5-5.1)
[2024-11-08 09:41] LABS: LYMPHOCYTES % (MANUAL) 7 % (16-48); MONOCYTES % (MANUAL) 5 % (0-11.0); MYELOCYTES % 3 % (0-0); NEUTROPHILS % (MANUAL) 85 (42-76); PLATELET ESTIMATE ADEQUATE
[2024-11-08 09:47] LABS: ANISOCYTOSIS 1+; STOMATOCYTES 1+
[2024-11-08] MEDS: VANCOMYCIN POST DIALYSIS 500MG IV PRN (10:59)
[2024-11-08] MEDS: NEUTRA PHOS 1 POWD.PACKET GT ONE (16:06)
[2024-11-08] MEDS: IV D5/0.45 NACL 1,000 ML IV PRN (17:59)
[2024-11-09] VITALS: BP 112/68; TEMP 97.3; O2SAT 100
[2024-11-09 04:00] VITALS: BP 112/68; TEMP 97.3; O2SAT 100
[2024-11-09 08:00] VITALS: BP 97/66; TEMP 97.8; O2SAT 94
[2024-11-09 08:54] LABS: BASOPHILS # (AUTO) 0.1 K/uL (0.0-0.2); BASOPHILS % (AUTO) 0.5 % (0.0-2.0); EOSINOPHILS # (AUTO) 0.1 K/uL (0.0-0.7); EOSINOPHILS % (AUTO) 0.9 % (0.0-6.0); HEMATOCRIT 30 % (39-51); HEMOGLOBIN 9.7 g/dL (13.5-17.5); LYMPHOCYTES # (AUTO) 0.9 K/uL (0.8-4.8); LYMPHOCYTES % (AUTO) 6.1 % (20.0-44.0); MEAN CORPUSCULAR HEMOGLOBIN 31 PG (26.0-33.0); MEAN CORPUSCULAR HGB CONC 33 g/dl (31.0-36.0); MEAN CORPUSCULAR VOLUME 95 fL (80-96); MONOCYTES # (AUTO) 1.2 K/uL (0.1-1.30); MONOCYTES % (AUTO) 8.6 % (2.0-12.0); NEUTROPHILS % (AUTO) 83.9 % (43.0-81.0); PLATELET COUNT (AUTO) 178 K/uL (150-450); RED BLOOD CELL COUNT(AUTO) 3.11 MIL/uL (4.5-6.0); RED CELL DISTRIBUTION WIDTH 16.2 % (11.5-15.0); WHITE BLOOD COUNT (AUTO) 14.3 K/uL (4.3-11.0)
[2024-11-09 09:12] LABS: MAGNESIUM 1.9 mg/dL (1.8-2.4); PHOSPHORUS 2.4 mg/dL (2.5-4.9)
[2024-11-09 09:20] LABS: LYMPHOCYTES % (MANUAL) 4 % (16-48); MONOCYTES % (MANUAL) 10 % (0-11.0)
[2024-11-09 09:21] LABS: MYELOCYTES % 2 % (0-0); NEUTROPHILS % (MANUAL) 84 (42-76); PLATELET ESTIMATE ADEQUATE
[2024-11-09 09:22] LABS: STOMATOCYTES 1+
[2024-11-09 10:05] LABS: CALCIUM, SERUM 9.3 mg/dL (8.5-10.1); POTASSIUM 3.5 mmol/L (3.5-5.1)
[2024-11-09 12:00] VITALS: BP 94/63; TEMP 97.6; O2SAT 100
[2024-11-09 16:00] VITALS: BP 105/60; TEMP 97.7; O2SAT 97
[2024-11-09] MEDS ORDERED: hydrALAZINE HCL IV 20 MG VIAL IV PRN (16:00)
[2024-11-09] MEDS: NEUTRA PHOS 1 POWD.PACKET NG ONE (16:04)
[2024-11-09] MEDS: Sodium Phosphate 15 MMOL in IV NS 0.9% 245 ML IV ONE (17:45)
[2024-11-09 20:00] VITALS: BP 110/48; TEMP 95.9; O2SAT 100
[2024-11-09] MEDS ORDERED: DIATR MEGLU/DIATRIZOATE SODIUM 30 ML BOTTLE (GASTROGRAPHIN) ONE (20:37)
[2024-11-10] VITALS: BP 111/59; TEMP 94.5; O2SAT 100
[2024-11-10 04:00] VITALS: BP 120/57; TEMP 96.6; O2SAT 100
[2024-11-10] MEDS ORDERED: VANCOMYCIN POST DIALYSIS 500MG IV PRN (06:00)
[2024-11-10 08:00] VITALS: BP 108/74; TEMP 97.4; O2SAT 100
[2024-11-10 08:17] LABS: BASOPHILS % (AUTO) 0.3 % (0.0-2.0); EOSINOPHILS # (AUTO) 0.1 K/uL (0.0-0.7); EOSINOPHILS % (AUTO) 0.4 % (0.0-6.0); HEMATOCRIT 30 % (39-51); HEMOGLOBIN 9.4 g/dL (13.5-17.5); LYMPHOCYTES # (AUTO) 0.7 K/uL (0.8-4.8); LYMPHOCYTES % (AUTO) 5.3 % (20.0-44.0); MEAN CORPUSCULAR HEMOGLOBIN 30 PG (26.0-33.0); MEAN CORPUSCULAR HGB CONC 32 g/dl (31.0-36.0); MEAN CORPUSCULAR VOLUME 96 fL (80-96); MONOCYTES # (AUTO) 1.1 K/uL (0.1-1.30); MONOCYTES % (AUTO) 7.9 % (2.0-12.0); NEUTROPHILS # (AUTO) 11.5 K/uL (1.8-8.9); NEUTROPHILS % (AUTO) 86.1 % (43.0-81.0); PLATELET COUNT (AUTO) 218 K/uL (150-450); RED BLOOD CELL COUNT(AUTO) 3.09 MIL/uL (4.5-6.0); RED CELL DISTRIBUTION WIDTH 16.3 % (11.5-15.0); WHITE BLOOD COUNT (AUTO) 13.3 K/uL (4.3-11.0)
[2024-11-10 08:18] LABS: CALCIUM, SERUM 8.1 mg/dL (8.5-10.1); CREATININE 2.1 mg/dL (0.6-1.3); MAGNESIUM 1.9 mg/dL (1.8-2.4); PHOSPHORUS 4.1 mg/dL (2.5-4.9); POTASSIUM 3.4 mmol/L (3.5-5.1)
[2024-11-10] MEDS: METOCLOPRAMIDE HCL 10 MG/2 ML VIAL IV SCH (08:35)
[2024-11-10 10:21] LABS: BAND % (MANUAL) 2 % (0.0-5.0); LYMPHOCYTES % (MANUAL) 3 % (16-48); MONOCYTES % (MANUAL) 6 % (0-11.0); MYELOCYTES % 2 % (0-0); NEUTROPHILS % (MANUAL) 87 (42-76); PLATELET ESTIMATE ADEQUATE
[2024-11-10 10:22] LABS: ANISOCYTOSIS 1+; TARGET CELLS 1+
[2024-11-10 12:00] VITALS: BP 118/62; TEMP 97.6; O2SAT 100
[2024-11-10 16:00] VITALS: BP 114/68; TEMP 97.7; O2SAT 100
[2024-11-10 20:00] VITALS: BP 115/72; TEMP 99.7; O2SAT 99
[2024-11-11] VITALS: BP 112/50; TEMP 99; O2SAT 99
[2024-11-11 04:00] VITALS: BP 132/66; TEMP 99; O2SAT 97
[2024-11-11 08:00] VITALS: BP 121/88; TEMP 98.3; O2SAT 97
[2024-11-11 12:00] VITALS: BP 133/63; TEMP 97.9; O2SAT 96
[2024-11-11 16:00] VITALS: BP 108/57
[2024-11-11 20:41] VITALS: BP 144/67; TEMP 98.1; O2SAT 100
[2024-11-12 00:10] VITALS: BP 136/59; TEMP 98.8; O2SAT 100
[2024-11-12 04:01] VITALS: BP 113/51; TEMP 98.2; O2SAT 100
[2024-11-12 08:00] VITALS: BP 116/96; TEMP 98.1; O2SAT 98
[2024-11-12 09:04] VITALS: BP 116/96
== END 2024-11-12 12:30 | DRG 720 ==
LOC: ER 14:30 → ICU 20:48 → TELE 10-12 21:08 → MED 10-15 11:13 → ICU 10-20 18:00 → TELE-TD 10-28 23:33 → ICUOV 10-29 09:53 → TELE-TD 10-30 10:36 → TELE1 10-31 10:48 → ICU 11-01 11:05 → TELE1 11-07 13:11 → TELE-TD 11-07 13:56 → TELE1 11-08 14:12
PROVIDERS: ADMIT Student in an Organized Health Care Education/Training Program; ATTEND Internal Medicine
PROC: 5A1955Z Respiratory Ventilation, Greater than 96 Consecutive Hours (ICD-10-PCS; principal; 2024-09-30)
PROC: 0BH17EZ Insertion of Endotracheal Airway into Trachea, Via Natural or Artificial Opening (ICD-10-PCS; 2024-09-30)
PROC: 5A09557 Assistance with Respiratory Ventilation, Greater than 96 Consecutive Hours, Continuous Positive Airway Pressure (ICD-10-PCS; 2024-09-30)
PROC: 02HV33Z Insertion of Infusion Device into Superior Vena Cava, Percutaneous Approach (ICD-10-PCS; 2024-10-02)
PROC: 0BH18EZ Insertion of Endotracheal Airway into Trachea, Via Natural or Artificial Opening Endoscopic (ICD-10-PCS; 2024-10-20)
PROC: 5A1945Z Respiratory Ventilation, 24-96 Consecutive Hours (ICD-10-PCS; 2024-10-20)
DX: A41.9 Sepsis, unspecified organism (principal); J96.01 Acute respiratory failure with hypoxia; I46.9 Cardiac arrest, cause unspecified; K72.00 Acute and subacute hepatic failure without coma; J69.0 Pneumonitis due to inhalation of food and vomit; G93.41 Metabolic encephalopathy; R65.21 Severe sepsis with septic shock; K92.2 Gastrointestinal hemorrhage, unspecified; L89.623 Pressure ulcer of left heel, stage 3; L89.896 Pressure-induced deep tissue damage of other site; E87.0 Hyperosmolality and hypernatremia; E44.0 Moderate protein-calorie malnutrition; L89.626 Pressure-induced deep tissue damage of left heel; I21.4 Non-ST elevation (NSTEMI) myocardial infarction; D68.59 Other primary thrombophilia; E83.39 Other disorders of phosphorus metabolism; N18.6 End stage renal disease; D69.6 Thrombocytopenia, unspecified; E11.22 Type 2 diabetes mellitus with diabetic chronic kidney disease; D64.9 Anemia, unspecified; E11.40 Type 2 diabetes mellitus with diabetic neuropathy, unspecified; Z99.2 Dependence on renal dialysis; F02.80 Dementia in other diseases classified elsewhere, unspecified severity, without behavioral disturbance, psychotic disturbance, mood disturbance, and anxiety; G30.9 Alzheimer's disease, unspecified; J96.02 Acute respiratory failure with hypercapnia; E78.00 Pure hypercholesterolemia, unspecified; I25.10 Atherosclerotic heart disease of native coronary artery without angina pectoris; K21.9 Gastro-esophageal reflux disease without esophagitis; N40.0 Benign prostatic hyperplasia without lower urinary tract symptoms; E03.9 Hypothyroidism, unspecified; Z88.6 Allergy status to analgesic agent; E11.65 Type 2 diabetes mellitus with hyperglycemia; E66.01 Morbid (severe) obesity due to excess calories; E83.42 Hypomagnesemia; E87.29 Other acidosis; E87.6 Hypokalemia; I13.2 Hypertensive heart and chronic kidney disease with heart failure and with stage 5 chronic kidney disease, or end stage renal disease; Z66 Do not resuscitate; R13.10 Dysphagia, unspecified; S81.811A Laceration without foreign body, right lower leg, initial encounter; X58.XXXA Exposure to other specified factors, initial encounter; Y92.9 Unspecified place or not applicable; I21.A1 Myocardial infarction type 2; R74.01 Elevation of levels of liver transaminase levels; J98.11 Atelectasis; L03.113 Cellulitis of right upper limb; Z74.01 Bed confinement status; Z82.49 Family history of ischemic heart disease and other diseases of the circulatory system; Z74.09 Other reduced mobility; I50.32 Chronic diastolic (congestive) heart failure; S90.822A Blister (nonthermal), left foot, initial encounter; B19.10 Unspecified viral hepatitis B without hepatic coma; S90.821A Blister (nonthermal), right foot, initial encounter
CPT/HCPCS: 31720; 36415; 36569; 36600; 70450-TC; 71045-TC; 74018; 76705-TC; 80048-TC; 80053-TC; 80076-TC; 80170-TC; 80202-TC; 82248-TC; 82272-TC; 82533; 82607-TC; 82728-TC; 82803-TC; 82962-TC; 83540-TC; 83605-TC; 83735-TC; 84100-TC; 84443-TC; 84478-TC; 84484-TC; 85025-TC; 85027-TC; 85730-TC; 86480; 86706; 86850-TC; 87040-TC; 87081-TC; 87340; 90935-TC; 93307-TC; 94002-TC; 94003-TC; 94640-TC; 94660; 94667-TC; 94668-TC; 94760-TC; 94761-TC; 94762-TC; 94799-TC; 99082-TC; A4216; A4217; A4223; A6253; A6403; A9563; G0378; J0171; J0885; J1580; J1720; J1815; J2185; J2354; J2405; J2470; J2543; J2765; J2997; J3370; J3475; J3480; J3490; J7030; J7040; J7042; J7050; J7060; J7070; P9016; P9047; Q9963